=== PATIENT | male | born 1940 | race Caucasian/White ===

== ENCOUNTER 2017-08-22 00:26 | Emergency (ER) | payer OTHER, MEDICAID ==
[~2017-08-22] VITALS: Ht 170.2 cm; Wt 95.3 kg
--- NOTE | 2017-08-22 00:36 | NUR ---
BIBRA 89 FROM HOME C/O "SOB X SEVERAL DAYS". PT IS AAOX4. PT ABLE TOSPEAK FULL SENTENCES. SPO2 96% ON RA. PT PLACED ON NC 2L/M, SPO2 98% - DYSPNEA, COUGH, CONGESTION. PT DENIES ANY PAIN. SKIN WNL. RESP EVEN AND UNLABORED. NO S/S OF ACUTE DISTRESS NOTED. VSS. PT PLACED ON CARDIACF MONITOR AND POX. PT SAFETY AND COMOFORT MEASURES IN PLACE. AWAITING MD FOR EVAL.
[2017-08-22 01:26] LABS: BASOPHILS % (AUTO) 0.5 % (0.0-2.0); EOSINOPHILS % (AUTO) 10.3 % (0.0-6.0); HEMATOCRIT 35 % (39-51); HEMOGLOBIN 12.1 g/dL (13.5-17.5); LYMPHOCYTES # (AUTO) 1.8 /CMM (0.8-4.8); LYMPHOCYTES % (AUTO) 19.8 % (20.0-44.0); MEAN CORPUSCULAR HGB CONC 35 g/dl (31.0-36.0); MEAN CORPUSCULAR VOLUME 86 fL (80-96); MONOCYTES # (AUTO) 0.5 /CMM (0.1-1.30); MONOCYTES % (AUTO) 6.1 % (2.0-12.0); NEUTROPHILS # (AUTO) 5.7 /CMM (1.8-8.9); NEUTROPHILS % (AUTO) 63.3 % (43.0-81.0); PLATELET COUNT (AUTO) 164 /CMM (150-450); RDW COEFFICIENT OF VARIATION 12.8 (11.5-15.0); RED BLOOD CELL COUNT(AUTO) 4.05 MIL/uL (4.5-6.0); WHITE BLOOD COUNT (AUTO) 8.9 K/uL (4.3-11.0)
[2017-08-22 01:38] LABS: CALCIUM, SERUM 9.6 mg/dL (8.5-10.1); CARBON DIOXIDE 25 mmol/L (21-32); CHLORIDE 101 mmol/L (98-107); CREATININE 1.6 mg/dL (0.6-1.3); GLUCOSE 97 mg/dL (74-106); POTASSIUM 4.1 mmol/L (3.5-5.1); SODIUM SERUM 134 mmol/L (136-145); UREA NITROGEN, BLOOD 30 mg/dL (7-18)
[2017-08-22 01:45] LABS: TROPONIN I < 0.017 ng/mL (0.00-0.056)
[2017-08-22 01:50] LABS: ALANINE AMINOTRANSFERASE 39 U/L (12-78); ALBUMIN 3.6 g/dL (3.4-5.0); ALKALINE PHOSPHATASE 89 U/L (46-116); ASPARTATE AMINOTRANSFERASE 21 U/L (15-37); B-TYPE NATRIURETIC PEPTIDE 3063 PG/ML (0-125); BILIRUBIN,DIRECT 0.1 mg/dL (0.0-0.2); BILIRUBIN,TOTAL 0.5 mg/dL (0.2-1.0)
[2017-08-22] MEDS ORDERED: FUROSEMIDE 40 MG/4 ML VIAL ONE (02:06)
[2017-08-22 02:12] LABS: INR 1.01 (0.87-1.13)
[2017-08-22 02:16] VITALS: BP 119/68
--- NOTE | 2017-08-22 02:16 | NUR ---
Patient discharged to home in stable condition. Written and verbal after care instructions given. Patient verbalizes understanding of instruction.IV removed. Catheter intact and site benign. Pressure and 4x4 applied to site. No bleeding noted. VSS UPON DISCHARGE.
[2017-08-22] MEDS ORDERED: FUROSEMIDE 40 MG/4 ML VIAL IV ONE (02:30)
== END 2017-08-22 02:17 | disposition home or self-care (01) ==
LOC: ER 00:28
DX: I11.0 Hypertensive heart disease with heart failure (principal); I50.9 Heart failure, unspecified; E11.9 Type 2 diabetes mellitus without complications; I48.0 Paroxysmal atrial fibrillation; Z60.2 Problems related to living alone
CPT/HCPCS: 36415; 71045; 80048; 80076; 83880; 84484; 85025; 85730; 93005; 99285; A4606; J1940; Z7610

== ENCOUNTER 2020-05-07 03:30 | Inpatient (IN) | payer MEDICARE, OTHER ==
[~2020-05-07] VITALS: Ht 175.3 cm; Wt 77.1 kg
--- NOTE | 2020-05-07 03:45 | NUR ---
CAROLYN Morocho FROM [facility] FOR C/O ABD PAIN, N/V/D X 10 DAYS. PT DENIED H/A, COUGH, FEVER OR ANY RESPIRATORY PROBLEMS. PT WAS ASSISTED TO BED 16 AND WAS PLACED ON A MONITOR . VSS. WILL CONT TO MONITOR ,
[2020-05-07] MEDS ORDERED: ONDANSETRON HCL/PF 4 MG/2 ML VIAL ONE (03:51)
[2020-05-07] MEDS ORDERED: ONDANSETRON HCL/PF 4 MG/2 ML VIAL IVP ONE (04:00)
[2020-05-07] MEDS ORDERED: IV NS 0.9% 1,000 ML BAG IV ONE (04:00)
--- NOTE | 2020-05-07 04:16 | NUR ---
PT NOTED TO BE COUGHING. REMAINS ON MONITOR AND PULSE OX.
[2020-05-07 04:27] LABS: BASOPHILS % (AUTO) 0.4 % (0.0-2.0); EOSINOPHILS % (AUTO) 0.9 % (0.0-6.0); LYMPHOCYTES # (AUTO) 0.6 /CMM (0.8-4.8); MEAN CORPUSCULAR HGB CONC 32 g/dl (31.0-36.0); MEAN CORPUSCULAR VOLUME 68 fL (80-96); MONOCYTES # (AUTO) 0.7 /CMM (0.1-1.30); MONOCYTES % (AUTO) 7.6 % (2.0-12.0); NEUTROPHILS # (AUTO) 8.2 /CMM (1.8-8.9); NEUTROPHILS % (AUTO) 85.1 % (43.0-81.0); PLATELET COUNT (AUTO) 342 /CMM (150-450); WHITE BLOOD COUNT (AUTO) 9.6 K/uL (4.3-11.0)
[2020-05-07 04:57] LABS: ALANINE AMINOTRANSFERASE 30 U/L (12-78); ALBUMIN 3.4 g/dL (3.4-5.0); ALKALINE PHOSPHATASE 86 U/L (46-116); ASPARTATE AMINOTRANSFERASE 21 U/L (15-37); BILIRUBIN,DIRECT 0.3 mg/dL (0.0-0.2); BILIRUBIN,TOTAL 0.7 mg/dL (0.2-1.0); CALCIUM, SERUM 8.3 mg/dL (8.5-10.1); CARBON DIOXIDE 21 mmol/L (21-32); CHLORIDE 86 mmol/L (98-107); CREATININE 1.4 mg/dL (0.6-1.3); GLUCOSE 114 mg/dL (74-106); LIPASE 37 U/L (73-393); POTASSIUM 4.3 mmol/L (3.5-5.1); TOTAL PROTEIN, SERUM 6.5 g/dL (6.4-8.2); UREA NITROGEN, BLOOD 34 mg/dL (7-18)
[2020-05-07 04:59] LABS: SODIUM SERUM 120 mmol/L (136-145)
--- NOTE | 2020-05-07 05:00 | NUR ---
PER CODING QUALITY ANALYST, HGB AND SODIUM LEVEL LOW, WILL REDRAW PT. AWARE.
[2020-05-07 05:17] LABS: RED BLOOD CELL COUNT(AUTO) 1.92 MIL/uL (4.5-6.0)
[2020-05-07 05:18] LABS: HEMATOCRIT 13 % (39-51); HEMOGLOBIN 4.2 g/dL (13.5-17.5)
[2020-05-07] MEDS ORDERED: CEFEPIME 1 GM VIAL ONE (05:25)
[2020-05-07] MEDS ORDERED: methylPREDNISolone SOD SUCC 125 MG/2ML VIAL ONE (05:25)
[2020-05-07] MEDS ORDERED: methylPREDNISolone SOD SUCC 125 MG/2ML VIAL IV ONE (05:30)
[2020-05-07] MEDS ORDERED: CEFEPIME 1 GM in IV D5W 50 ML IV ONE (05:30)
[2020-05-07] MEDS ORDERED: AZITHROMYCIN 500 MG in IV D5W 250 ML IV ONE (05:30)
[2020-05-07 05:38] LABS: BASOPHILS % (AUTO) 0.3 % (0.0-2.0); LYMPHOCYTES # (AUTO) 0.5 /CMM (0.8-4.8); LYMPHOCYTES % (AUTO) 5.5 % (20.0-44.0); MEAN CORPUSCULAR HGB CONC 32 g/dl (31.0-36.0); MEAN CORPUSCULAR VOLUME 70 fL (80-96); MONOCYTES # (AUTO) 0.8 /CMM (0.1-1.30); MONOCYTES % (AUTO) 9.2 % (2.0-12.0); NEUTROPHILS # (AUTO) 7.4 /CMM (1.8-8.9); PLATELET COUNT (AUTO) 308 /CMM (150-450); WHITE BLOOD COUNT (AUTO) 8.8 K/uL (4.3-11.0)
--- NOTE | 2020-05-07 05:42 | NUR ---
DR. MADISON (RANGE MANAGER GI) PAGED PER DR. WAGGONER'S REQUEST
[2020-05-07] MEDS ORDERED: ASPI-1420 PO (06:05)
[2020-05-07] MEDS ORDERED: FLUD0.1T PO (06:05)
[2020-05-07] MEDS ORDERED: DIGO125T PO (06:05)
[2020-05-07] MEDS ORDERED: MELA5TAB PO (06:05)
[2020-05-07] MEDS ORDERED: PANT40TA49 PO (06:05)
[2020-05-07] MEDS ORDERED: APIX5TAB PO (06:05)
[2020-05-07] MEDS ORDERED: FURO-145 PO (06:05)
[2020-05-07] MEDS ORDERED: CRAN450C PO (06:05)
[2020-05-07] MEDS ORDERED: AMIO200T5 PO (06:05)
[2020-05-07] MEDS ORDERED: DILT180C66 PO (06:05)
[2020-05-07] MEDS ORDERED: LORA-588 PO (06:05)
[2020-05-07] MEDS ORDERED: OMEG1CAP55 PO (06:05)
[2020-05-07] MEDS ORDERED: ATOR20TA PO (06:05)
[2020-05-07] MEDS ORDERED: [UNRECOGNIZED DRUG - CODE] PO (06:05)
[2020-05-07] MEDS ORDERED: HYDR-4076 PO (06:05)
[2020-05-07] MEDS ORDERED: FINA5TAB3 PO (06:05)
[2020-05-07] MEDS ORDERED: TAMS-12 PO (06:05)
--- NOTE | 2020-05-07 06:10 | NUR ---
DR. WAGGONER SPEAKING WITH DR. SUZAN DAILEY REGARDING ADMISSION
[2020-05-07 06:19] LABS: RED BLOOD CELL COUNT(AUTO) 1.83 MIL/uL (4.5-6.0)
[2020-05-07 06:21] LABS: HEMATOCRIT 13 % (39-51)
[2020-05-07 06:42] LABS: OCCULT BLOOD STOOL POSITIVE (NEGATIVE)
[2020-05-07] MEDS ORDERED: ACETAMINOPHEN 650 MG/SUPP.RECT RC PRN (07:00)
[2020-05-07] MEDS ORDERED: ONDANSETRON HCL/PF 4 MG/2 ML VIAL IVP PRN (07:00)
--- NOTE | 2020-05-07 07:22 | NUR ---
REPORT GIVEN TO DIONY SHELBY FOR CHETAN
[2020-05-07] MEDS ORDERED: PROTHROMBIN COMPLEX CONCENTR 500 UNIT VIAL IV ONE (07:30)
[2020-05-07] MEDS: PROTHROMBIN COMPLEX CONCENTR 500 UNIT VIAL IV ONE (07:35)
[2020-05-07 07:45] LABS: BILIRUBIN,URINE NEGATIVE (NEGATIVE); COLOR,URINE YELLOW (YELLOW); LEUKOCYTE ESTERASE ,URINE NEGATIVE (NEGATIVE); NITRITE, URINE NEGATIVE (NEGATIVE); PROTEIN,URINE NEGATIVE (NEGATIVE); UGLUCOSE NEGATIVE (NEGATIVE); UROBILINOGEN,URINE 0.2 EU/dL (0.2)
[2020-05-07 08:17] LABS: IRON, SERUM 6 ug/dl (50-175); TOTAL IRON BINDING CAPACITY 437 ug/dl (250-450)
--- NOTE | 2020-05-07 10:10 | NUR ---
1ST UNIT OF PRBC INFUSION STARTED. WILL MONITOR FOR ADVERSE REACTION.
[2020-05-07] MEDS ORDERED: PANTOPRAZOLE 40 MG VIAL ONE ×2 (10:13→19:50)
[2020-05-07] MEDS: PANTOPRAZOLE 40 MG VIAL IV SCH ×2 (10:15→19:51)
[2020-05-07 11:18] LABS: LYMPHOCYTES % (MANUAL) 3 % (16-48); MONOCYTES % (MANUAL) 3 % (0-11.0); NEUTROPHILS % (MANUAL) 94 (42-76)
--- NOTE | 2020-05-07 12:46 | NUR ---
JASON LINN TO [facility] ETA [phone]
--- NOTE | 2020-05-07 13:24 | NUR ---
VERIFIED 2ND UNIT OF BLOOD WITH BATSHEVA KEENE RN.
--- NOTE | 2020-05-07 16:28 | NUR ---
2ND UNIT OF PRBC COMPLETED AT 1615, PATIENT HAD NO ADVERSE REACTION. NEEDS ATTENDED. VITALS STABLE.
--- NOTE | 2020-05-07 16:29 | NUR ---
RENA WOLFE AT BEDSIDE FOR EVAL.
[2020-05-07 17:52] LABS: HEMOGLOBIN 6.4 g/dL (13.5-17.5)
--- NOTE | 2020-05-07 18:14 | NUR ---
RECEIVED ORDER FROM RENA WOLFE, TO KEEP PATIENT STRICTLY NPO EXCEPT FOR BOWEL PREP FOR TOMORROW'S PROCEDURE AT NOON (EGD AND COLONOSCOPY) W/ DR. BURROWS. SHE ALSO ORDERED 1 UNIT PRBC.
[2020-05-07] MEDS ORDERED: PEG 3350/NA SULF,BICARB,CL/KCL 4,000 ML BOTTLE PO ONE (18:30)
[2020-05-07] MEDS ORDERED: CEFTRIAXONE 1GM BAG (ER ONLY) 50 ML IV ONE (18:36)
--- NOTE | 2020-05-07 18:47 | NUR ---
PT ASSIGNED TO ROOM 107
--- NOTE | 2020-05-07 18:52 | NUR ---
TRIED TO GIVE REPORT, HOSPITAL TRAY SERVICE WORKER NURSE NOT AVAILABLE YET.
[2020-05-07] MEDS: CEFTRIAXONE 1 G in IV D5W 50 ML IV SCH (18:53)
[2020-05-07] MEDS: SOD FERRIC GLUC 125 MG in IV NS 0.9% 100 ML IV SCH (19:15)
--- NOTE | 2020-05-07 19:45 | NUR ---
REPORT GIVEN TO PATRICK SHELBY FOR CHETAN
[2020-05-07 20:00] VITALS: BP 131/58
--- NOTE | 2020-05-07 20:07 | NUR ---
PT TRANSFERED PER ACLS PROTOCOL
[2020-05-07 23:24] VITALS: BP 141/75
--- NOTE | 2020-05-07 23:26 | NUR ---
SRIDEVI/RN PRBC UNIT #3 STARTED. WILL MONITOR PER PROTOCOL.
--- NOTE | 2020-05-07 23:34 | NUR ---
SRIDEVI/RN CALLED KAELYN SANTIAGO [facility], TO OBTAIN EMERGENCY MASTER BLACK BELT FOR PROCEDURE CONSENT AND TO OBTAIN PERTINENT ADMISSION INFORMATIONS, SPOKE TO MARS, CAREGIVER, UNABLE TO OBTAIN INFORMATIONS FROM MARS PER MARS, SHE IS A CAREGIVER ONLY.
[2020-05-07 23:40] VITALS: BP 138/74
[2020-05-08] VITALS (11 sets, daily range): BP systolic 109–145; BP diastolic 50–80
--- NOTE | 2020-05-08 00:28 | NUR ---
[facility]RIEDVI[facility] PATIENT WAS AWAKE, ALERT, ORIENTED, COMFORTABLE, NO C/O PAIN, NO DISTRESS NOTED, ADMISSION DONE PER PROTOCOL, KRISH BOWEL PREP FOR COLONOSCOPY IN A.M. WAS STARTED, TEACHINGS FOR COLONOSCOPY WAS DONE, PATIENT VERBALIZED UNDERSTANDING AND AGREEMENT, PRBC TRANSFUSION WAS STARTED, TAUGHT THE USE OF CALL LIGHT AND PLACED IT AT BEDSIDE WITHIN REACH, FALL PRECAUTIONS PER PROTOCOL IMPLEMENTED, WILL MONITOR.
[2020-05-08] MEDS: IV D5/ 0.9% NACL 1,000 ML IV PRN (02:22)
--- NOTE | 2020-05-08 02:37 | NUR ---
SRIDEVI/RN BLOOD TRANSFUSION FINISHED, VITAL SIGNS STABLE, AFEBRILE, NO REACTIONS NOTED, WILL CONTINUE TO MONITOR.
--- NOTE | 2020-05-08 05:49 | NUR ---
SRIDEVI/RN PATIENT IS AWAKE, ALERT, ORIENTED, STILL TAKING THE GOLYTELY, STOOL NOT CLEAR YET, PATIENT IS COMFORTABLE, NO DISTRESS NOTED, ALL NEEDS ATTENDED AT THIS TIME, WILL CONTINUE TO MONITOR.
[2020-05-08] MEDS ORDERED: SORBITOL SOLUTION 30 ML PO SCH (06:00)
[2020-05-08] MEDS: PANTOPRAZOLE 40 MG VIAL IV SCH ×2 (06:37→18:10)
--- NOTE | 2020-05-08 07:36 | NUR ---
ORANGE PICKER MACHINE OPERATOR NOTES PATIENT RECEIVED IN BED, ALERT AND ORIENTED X 3-4. ON VIDEO CONTROL OPERATOR. ON NASAL CANNULA, 4.0 LITERS WITH NO RESPIRATORY DISTRESS NOTED WITH EVEN NON-LABORED BREATHING. IV ACCESS INTACT AND PATENT. SKIN WARM AND DRY TO TOUCH. PATIENT PRESENTS AND DENIES PAIN AND DISCOMFORT. SAFETY PRECAUTIONS IMPLEMENTED WITH BED LOCKED, BED ALARM ON, BILATERAL SIDE RAILS UP, AND CALL LIGHT WITHIN EASY REACH. WILL CONTINUE TO MONITOR PATIENT.
[2020-05-08 07:37] LABS: HEMATOCRIT 23 % (39-51); HEMOGLOBIN 7.2 g/dL (13.5-17.5); LYMPHOCYTES # (AUTO) 0.5 /CMM (0.8-4.8); LYMPHOCYTES % (AUTO) 3.4 % (20.0-44.0); MEAN CORPUSCULAR HGB CONC 31 g/dl (31.0-36.0); MEAN CORPUSCULAR VOLUME 77 fL (80-96); MONOCYTES # (AUTO) 1.4 /CMM (0.1-1.30); MONOCYTES % (AUTO) 8.6 % (2.0-12.0); NEUTROPHILS # (AUTO) 14.1 /CMM (1.8-8.9); PLATELET COUNT (AUTO) 381 /CMM (150-450); RED BLOOD CELL COUNT(AUTO) 2.99 MIL/uL (4.5-6.0)
--- NOTE | 2020-05-08 07:40 | NUR ---
SRIDEVI/RN RECEIVED A CALL FROM GENNARO MCCLOUD, INFORMED ME THAT THE RESPONSIBLE PERSON OF THE PATIENT IS DEON SANTIAGO, TEL # [phone]. ENDORSED TO NEXT RN.
--- NOTE | 2020-05-08 07:49 | NUR ---
left message to DEON [phone] for consent colonoscopy and EGD waiting for returning call back
--- NOTE | 2020-05-08 09:30 | NUR ---
SRIDEVI RN NOTES CONSENT OBTAINED FROM PONCE CHAVARRIA, CHARGE NURSE WITNESS AND CONSENT GIVEN. WILL CONTINUE TO MONITOR PATIENT.
[2020-05-08 10:25] LABS: CALCIUM, SERUM 8.5 mg/dL (8.5-10.1); MAGNESIUM 2.3 mg/dL (1.8-2.4); PHOSPHORUS 3.8 mg/dL (2.5-4.9); POTASSIUM 4.3 mmol/L (3.5-5.1)
[2020-05-08 10:44] LABS: THYROID STIMULATING HORMONE 0.766 uIU/mL (0.358-3.74); URIC ACID 4.3 mg/dL (2.6-7.2)
[2020-05-08] MEDS ORDERED: ETOMIDATE 2 MG/ML VIAL ONE (13:42)
--- NOTE | 2020-05-08 14:32 | NUR ---
REJECT OPENER NOTES PATIENT RETURNED FROM OR POST EGD AND COLONOSCOPY. WILL CONTINUE TO MONITOR PATIENT.
[2020-05-08] MEDS: SOD FERRIC GLUC 125 MG in IV NS 0.9% 100 ML IV SCH (15:51)
[2020-05-08 17:37] LABS: CREATININE 1.3 mg/dL (0.6-1.3)
[2020-05-08] MEDS: CEFTRIAXONE 1 G in IV D5W 50 ML IV SCH (17:48)
--- NOTE | 2020-05-08 18:45 | NUR ---
HEAD OPERATOR SULFIDE NOTES PATIENT IN BED, ALERT AND ORIENTED X 3-4. ON ORCHID TRANSPLANTER. ON NASAL CANNULA, 4.0 LITERS WITH NO RESPIRATORY DISTRESS NOTED WITH EVEN NON-LABORED BREATHING. IV ACCESS INTACT AND PATENT. SKIN KEPT CLEAN, WARM AND DRY TO TOUCH. PATIENT PRESENTS AND DENIES PAIN AND DISCOMFORT. MET ALL OF PATIENT'S NEEDS. SAFETY PRECAUTIONS IMPLEMENTED WITH BED LOCKED, BED ALARM ON, BILATERAL SIDE RAILS UP, AND CALL LIGHT WITHIN EASY REACH. WILL ENDORSE PLAN OF CARE TO UPCOMING RN.
--- NOTE | 2020-05-08 20:00 | NUR ---
followed up with lab regarding h and h not done. only one airport maintenance laborer on duty and she was unable to draw the blood . updated [facility] regarding delay new order for midline recieved.
--- NOTE | 2020-05-08 21:02 | NUR ---
assisted lab for successful blood draw of patient for h and h.
[2020-05-08 21:08] LABS: HEMOGLOBIN 7.2 g/dL (13.5-17.5)
--- NOTE | 2020-05-08 22:07 | NUR ---
jo dotson/ picc line nurse at the bedside to perform midline insertion Addendum: 05/08/20 at 2221 by KARLO SKY RN left upper arm 18 gauge midline inserted to left arm per jo dotson
[2020-05-09] VITALS (9 sets, daily range): BP systolic 108–148; BP diastolic 54–80
--- NOTE | 2020-05-09 07:30 | NUR ---
DOUBLE END SEWER OPENING NOTES Patient is alert and oriented x 3. Patient was in good stable condition upon endorsment from night shift manager. Patient is on N/C with 02 at 4 liters with no s/s of respiratory distress. IV access midline to left AC intact and free of any s/s of infection or bleeding. No c/o pain or discomfort. Bed is in lowest and locked position. Bed is in lowest and locked position. Will continue to monitor. Call light with in reach.
[2020-05-09 07:31] LABS: CALCIUM, SERUM 8.1 mg/dL (8.5-10.1); CREATININE 1.1 mg/dL (0.6-1.3); MAGNESIUM 2.5 mg/dL (1.8-2.4); PHOSPHORUS 3.3 mg/dL (2.5-4.9); POTASSIUM 3.4 mmol/L (3.5-5.1)
[2020-05-09 07:49] LABS: BASOPHILS % (AUTO) 0.1 % (0.0-2.0); EOSINOPHILS % (AUTO) 0.7 % (0.0-6.0); HEMATOCRIT 21 % (39-51); LYMPHOCYTES # (AUTO) 0.7 /CMM (0.8-4.8); LYMPHOCYTES % (AUTO) 4.9 % (20.0-44.0); MEAN CORPUSCULAR HGB CONC 31 g/dl (31.0-36.0); MEAN CORPUSCULAR VOLUME 77 fL (80-96); MONOCYTES # (AUTO) 1.2 /CMM (0.1-1.30); MONOCYTES % (AUTO) 8.4 % (2.0-12.0); NEUTROPHILS % (AUTO) 85.9 % (43.0-81.0); PLATELET COUNT (AUTO) 337 /CMM (150-450); RED BLOOD CELL COUNT(AUTO) 2.67 MIL/uL (4.5-6.0)
[2020-05-09 07:57] LABS: HEMOGLOBIN 6.4 g/dL (13.5-17.5)
--- NOTE | 2020-05-09 08:46 | NUR ---
hgb 6.4 hct 21 LABEL MACHINE OPERATOR was notified and 1 units of PRBC to be given today when available
[2020-05-09] MEDS: PANTOPRAZOLE 40 MG VIAL IV SCH ×2 (09:33→21:51)
[2020-05-09] MEDS ORDERED: POTASSIUM CL. PREMIX PERIPHER. 50 ML IV SCH (11:30)
[2020-05-09] MEDS ORDERED: POTASSIUM CHLORIDE 20 MEQ TAB.PRT.SR PO ONE (12:30)
--- NOTE | 2020-05-09 13:00 | NUR ---
ELECTRICAL INSPECTOR NOTES Patient was given his blood transfusion. Patients vitals monitored closely per protocol and did not have any s/s of reaction. No c/o sob. No c/o fever or chills. Patient tolerated well
[2020-05-09] MEDS: SOD FERRIC GLUC 125 MG in IV NS 0.9% 100 ML IV SCH (15:02)
[2020-05-09] MEDS: IV D5/ 0.9% NACL 1,000 ML IV PRN (15:12)
[2020-05-09] MEDS: ZITHROMAX 500 MG/250 ML D5W IV SCH ×2 (17:59)
[2020-05-09] MEDS: FOLIC ACID 1 MG TABLET PO SCH (18:09)
--- NOTE | 2020-05-09 18:16 | NUR ---
PER RN, PT BEING TRANSFERED IN THE EVENING, TO DO TOMORROW IN THE AM.
--- NOTE | 2020-05-09 19:40 | NUR ---
MAGAZINE REPAIRER CLOSING NOTES Patient is alert and oriented x 3. Patient is on N/C with 02 at 4 litesr with no s/s of respiratory distress. IV midline to left AC intact and free of any s/s of infection or bleeding. No c/o pain or discomfort. Patient educated to use call light for assistance. Bed is in lowest and locked position. Patient was given his 1 unit of blood transfusion and did not have any s/sx of allergic reaction. No c/o itching or sob. Vitals WNL. Bed is in lowest and locked position. Endorsed to next shift for CHETAN.
--- NOTE | 2020-05-09 20:00 | NUR ---
AFSANEH NOTES PT TRANSFERRED TO [facility] VIA BED. PT ORIENTED TO ROOM AND UNIT. CALL LIGHT WITHIN REACH BED LOCKED IN PLACE. WILL CONTINUE TO MONITOR. Addendum: 05/10/20 at 0320 by KARLO SKY RN REPORT GIVEN TO ISABELLE AT 2105 PATIENT TRANSFERRED AT 2120 TO [facility] BED 1
--- NOTE | 2020-05-09 20:05 | NUR ---
DR. HILARIO CALLED. UPDATED ON PATIENT CONDITION. DR. HILARIO TO WRITE NEW ORDERS FOR LABS IN AM AND POSSIBLE CT SCAN.
--- NOTE | 2020-05-09 21:42 | NUR ---
SPOKE WITH RN, PREP GIVEN FOR CT AP WITH IV AND ORAL CONTRAST. NPO STARTS AT 2AM AND DRINKING ORAL CONTRAST AT 6AM. WILL PERFORM CT IV CONTRAST IN CT DEPARTMENT AT 7AM. RN WILL OBTAIN CONTRAST INJECTION CONSENT AND IV LINE.
[2020-05-09] MEDS: CEFTRIAXONE 1 G in IV D5W 50 ML IV SCH (22:05)
[2020-05-10] VITALS: BP 129/54
[2020-05-10 00:06] LABS: HEMOGLOBIN 7.7 g/dL (13.5-17.5)
[2020-05-10 04:00] VITALS: BP 131/84
[2020-05-10 06:46] LABS: BASOPHILS % (AUTO) 0.3 % (0.0-2.0); EOSINOPHILS % (AUTO) 3.8 % (0.0-6.0); HEMATOCRIT 28 % (39-51); HEMOGLOBIN 8.3 g/dL (13.5-17.5); LYMPHOCYTES # (AUTO) 0.6 /CMM (0.8-4.8); LYMPHOCYTES % (AUTO) 4.9 % (20.0-44.0); MEAN CORPUSCULAR HGB CONC 29 g/dl (31.0-36.0); MEAN CORPUSCULAR VOLUME 85 fL (80-96); MONOCYTES # (AUTO) 0.9 /CMM (0.1-1.30); NEUTROPHILS # (AUTO) 9.7 /CMM (1.8-8.9); PLATELET COUNT (AUTO) 279 /CMM (150-450); RED BLOOD CELL COUNT(AUTO) 3.32 MIL/uL (4.5-6.0); WHITE BLOOD COUNT (AUTO) 11.7 K/uL (4.3-11.0)
[2020-05-10] MEDS ORDERED: DIATR MEGLU/DIATRIZOATE SODIUM 30 ML BOTTLE (GASTROGRAPHIN) ONE (06:48)
[2020-05-10] MEDS ORDERED: DIATR MEGLU/DIATRIZOATE SODIUM 120 ML BOTTLE (GASTROGRAPHIN) ONE (06:48)
[2020-05-10 07:26] LABS: CALCIUM, SERUM 8.5 mg/dL (8.5-10.1); CREATININE 0.9 mg/dL (0.6-1.3); MAGNESIUM 2.4 mg/dL (1.8-2.4); PHOSPHORUS 3.1 mg/dL (2.5-4.9); POTASSIUM 3.4 mmol/L (3.5-5.1)
--- NOTE | 2020-05-10 07:46 | NUR ---
RN NOTES Patient is alert and oriented x 3. Patient was in good stable condition. Patient is on N/C with 02 at 4 liters with no s/s of respiratory distress. IV access midline to left AC intact and free of any s/s of infection or bleeding. No c/o pain or discomfort. Bed is in lowest and locked position. Bed is in lowest and locked position. Will continue to monitor. Call light with in reach. CT OF THE ABDOMEN WILL BE DONE THIS MORNING WILL ENDORSE CARE TO DAY SHIFT.
--- NOTE | 2020-05-10 07:53 | NUR ---
PACKING SHED SUPERVISOR OPENING NOTES PT RECEIVED AWAKE IN BED IN NO ACUTE SIGNS OF DISTRESS. A/O X3. ABLE TO MAKE NEEDS KNOWN, DENIES PAIN OR ANY DISCOMFORTS AT THIS TIME. ON 02 VIA N/C AT 2LPM, TOLERATING WELL, BREATHING EVEN AND UNLABORED. EXTERNAL CALL CENTER DISPATCHER CURRENTLY SHOWS AFIB WITH HR OF 95, NO C/O CARDIAC DISTRESS VOICED AT THIS TIME. KARI MIDLINE INTACT AND PATENT, IVF RUNNING ORDERED. SAFETY MEASURES IN PLACE: BED IN LOWEST LOCKED POSITION WITH SR UP X2. CALL LIGHT W/IN REACH. WILL CONTINUE TO MONITOR PT ACCORDINGLY.
[2020-05-10] MEDS ORDERED: IOHEXOL-300 100 ML VIAL IV ONE (07:59)
[2020-05-10] MEDS ORDERED: IV NS 0.9% 250 ML IV ONE (07:59)
[2020-05-10 08:36] VITALS: BP 128/71
[2020-05-10] MEDS: POTASSIUM CHLORIDE 20 MEQ TAB.PRT.SR PO SCH ×2 (09:38→10:51)
[2020-05-10] MEDS: FOLIC ACID 1 MG TABLET PO SCH (09:38)
[2020-05-10] MEDS: PANTOPRAZOLE 40 MG VIAL IV SCH ×2 (09:39→20:09)
[2020-05-10 12:20] VITALS: BP 102/46
[2020-05-10] MEDS: SOD FERRIC GLUC 125 MG in IV NS 0.9% 100 ML IV SCH (14:36)
[2020-05-10 15:59] VITALS: BP 128/88
[2020-05-10] MEDS: ZITHROMAX 500 MG/250 ML D5W IV SCH ×2 (16:09)
--- NOTE | 2020-05-10 18:36 | NUR ---
MS RN CLOSING NOTES PT IN BED AWAKE AND RESTING AT MODERATE HIGH BACKREST POSITION AT THIS TIME. A/O X3. ABLE TO MAKE NEEDS KNOWN. ON 02 VIA N/C AT 1LPM, TOLERATING WELL, BREATHING EVEN AND UNLABORED. KARI MIDLINE INTACT AND PATENT, IVF RUNNING ORDERED. ALL NEEDS AND CARE ATTENDED WELL. SAFETY MEASURES IN PLACE: BED IN LOWEST LOCKED POSITION WITH SR UP X2. CALL LIGHT W/IN REACH. WILL ENDORSE CHETAN TO NIGHT NURSE.
[2020-05-10] MEDS: MORPHINE SULFATE INJ 2 MG/ML DISP.SYRIN IV PRN (19:04)
--- NOTE | 2020-05-10 19:46 | NUR ---
MS RN OPENING NOTE Patient awake in bed, A/O x3. HOB elevated. Breathing even, clear, unlabored on 1 LPM NC. PERRLA. Sensations intact. No numbness or tingling. No JVD. Skin is warm, pink, dry, intact with moderate purple discoloration on bilateral upper extremities. Abdomen large, round soft, non-tender. Patient denies nausea or vomiting. BS active. Patient is incontinent. Urine output clear and yellow. IV site KARI midline running D5NS @ 50 ml/hr. No signs of redness or infiltration. Bed in low position, wheels locked, side rails up x2, call light within reach.
[2020-05-10 20:00] VITALS: BP 135/69
[2020-05-10] MEDS: CEFTRIAXONE 1 G in IV D5W 50 ML IV SCH (20:08)
[2020-05-11 06:28] LABS: BASOPHILS # (AUTO) 0.2 /CMM (0.0-0.2); BASOPHILS % (AUTO) 1.6 % (0.0-2.0); EOSINOPHILS % (AUTO) 4.8 % (0.0-6.0); HEMATOCRIT 28 % (39-51); HEMOGLOBIN 8.7 g/dL (13.5-17.5); LYMPHOCYTES # (AUTO) 0.6 /CMM (0.8-4.8); LYMPHOCYTES % (AUTO) 4.5 % (20.0-44.0); MEAN CORPUSCULAR HGB CONC 31 g/dl (31.0-36.0); MEAN CORPUSCULAR VOLUME 79 fL (80-96); MONOCYTES # (AUTO) 0.8 /CMM (0.1-1.30); MONOCYTES % (AUTO) 6.5 % (2.0-12.0); NEUTROPHILS # (AUTO) 10.4 /CMM (1.8-8.9); NEUTROPHILS % (AUTO) 82.6 % (43.0-81.0); PLATELET COUNT (AUTO) 289 /CMM (150-450); RED BLOOD CELL COUNT(AUTO) 3.48 MIL/uL (4.5-6.0); WHITE BLOOD COUNT (AUTO) 12.5 K/uL (4.3-11.0)
[2020-05-11 07:21] LABS: CALCIUM, SERUM 8.5 mg/dL (8.5-10.1); CREATININE 0.9 mg/dL (0.6-1.3); MAGNESIUM 3.5 mg/dL (1.8-2.4); PHOSPHORUS 3.3 mg/dL (2.5-4.9); POTASSIUM 3.7 mmol/L (3.5-5.1); PROSTATE SPECIFIC ANTIGEN SCR 13.05 ng/mL (0.00-4.00)
--- NOTE | 2020-05-11 07:28 | NUR ---
MS RN OPENING NOTES RECEIVED PT AWAKE AND SITTING IN BED. A/O X3. ABLE TO MAKE NEEDS KNOWN, DENIES PAIN OR ANY DISCOMFORTS AT THIS TIME. ON ROOM AIR, TOLERATING WELL, RESPIRATION ARE EVEN AND UNLABORED. KARI MIDLINE INTACT, PATENT AND FLUSHES WELL. SAFETY MEASURES IN PLACE: BED IN LOWEST LOCKED POSITION WITH SR UP X2. CALL LIGHT W/IN REACH. WILL CONTINUE TO MONITOR PT ACCORDINGLY.
[2020-05-11 08:06] LABS: IMMUNOGLOBULIN A, SERUM 197 mg/dL (61-437); IMMUNOGLOBULIN G, SERUM 809 mg/dL (603-1613); IMMUNOGLOBULIN M, SERUM 22 mg/dL (15-143)
[2020-05-11 08:21] VITALS: BP 146/69
[2020-05-11] MEDS: FOLIC ACID 1 MG TABLET PO SCH (08:27)
[2020-05-11] MEDS: PANTOPRAZOLE 40 MG VIAL IV SCH ×2 (08:27→20:22)
[2020-05-11] MEDS: SOD FERRIC GLUC 125 MG in IV NS 0.9% 100 ML IV SCH (14:30)
[2020-05-11 16:15] VITALS: BP 136/85
[2020-05-11] MEDS: ZITHROMAX 500 MG/250 ML D5W IV SCH ×2 (16:33)
[2020-05-11] MEDS ORDERED: FERR325T23 PO (18:12)
--- NOTE | 2020-05-11 19:05 | NUR ---
MS RN CLOSING NOTES PT IN BED AWAKE AT THIS TIME. A/O X3. ABLE TO MAKE NEEDS KNOWN. ON ROOM AIR, TOLERATING WELL, BREATHING EVEN AND UNLABORED. KARI MIDLINE INTACT AND PATENT. ALL NEEDS AND CARE ATTENDED WELL. SAFETY MEASURES KEPT IN PLACE: BED IN LOWEST LOCKED POSITION WITH SR UP X2. CALL LIGHT W/IN REACH. WILL ENDORSE CHETAN TO NIGHT NURSE.
--- NOTE | 2020-05-11 19:30 | NUR ---
MS RN NOTE: PATIENT RESTING IN BED, NO ACUTE DISTRESS NOTED. BREATHING EVEN AND UNLABORED, NO SOB NOTED. MIDLINE TO LEFT UPPER ARM IN PLACE. PATIENT TO BE DISCHARGE BACK TO [facility] AND CARDIAC EXERCISE SPECIALIST TIME AT 2030. DISCHARGE PAPERWORK COMPLETED DURING DAYSHIFT. REPORT TO BE GIVEN TO FACILITY. BED LOCKED AND IN LOWEST POSITION, CALL LIGHT IN REACH. WILL CONTINUE TO MONITOR.
[2020-05-11] MEDS: CEFTRIAXONE 1 G in IV D5W 50 ML IV SCH (20:22)
[2020-05-11] MEDS: MORPHINE SULFATE INJ 2 MG/ML DISP.SYRIN IV PRN (20:23)
--- NOTE | 2020-05-11 20:30 | NUR ---
MS RN NOTE: PATIENT COMPLAIN OF BACK, SCROTUM PAIN 12/31, MORPHINE 2MG IV GIVEN MD ORDER. CALLED FACILITY AND REPORT GIVEN TO AURELIO. DISCHARGE PAPERWORK SIGNED AND FILED IN CHART. WAITING FOR AMBULANCE PICKER TENDER. WILL CONTINUE TO MONITOR.
--- NOTE | 2020-05-11 21:15 | NUR ---
RN NOTE: EMT ARRIVED TO MAXILLOFACIAL SURGEON PATIENT. REPORT AND DISCHARGE PAPERWORK GIVEN TO EMT. MIDLINE TO LEFT UPPER ARM REMOVED, COVERED WITH GAUZE, PRESSURE APPLIED AND SECURED WITH TAPE. ID BAND REMOVED. BELONGINGS CHECKED AND WITH EMT. PATIENT OFF FLOOR IN STABLE CONDITION. Addendum: 05/11/20 at 2157 by KOURTNEY BROWN RN FACILITY CALLED AND INFORMED THAT PATIENT IS ON THE WAY.
[2020-05-11 21:22] VITALS: BP 160/94
[2020-05-12 01:06] LABS: HAPTOGLOBIN 120 mg/dL (34-355)
[2020-05-12 09:08] LABS: *SPE A/G RATIO 1.3 (0.7-1.7); *SPE ALBUMIN 3.5 g/dL (2.9-4.4); *SPE ALPHA-1-GLOBULIN 0.3 g/dL (0.0-0.4); *SPE ALPHA-2-GLOBULIN 0.7 g/dL (0.4-1.0); *SPE GLOBULIN, TOTAL 2.7 g/dL (2.2-3.9); *SPE M-SPIKE Not Observed g/dL (Not Observed); *SPEGAMMA GLOBULIN 0.7 g/dL (0.4-1.8)
[2020-05-12] MEDS ORDERED: SOD FERRIC GLUC 125 MG in IV NS 0.9% 100 ML IV SCH (14:00)
== END 2020-05-11 21:00 | DRG 193 ==
LOC: ER 03:32 → TRANSITION 07:21 → TELE1 18:51 → TELE 05-09 21:18 → MED 05-10 12:42
PROVIDERS: ADMIT Registered Nurse; ATTEND Nurse Practitioner Acute Care
PROC: 30233N1 Transfusion of Nonautologous Red Blood Cells into Peripheral Vein, Percutaneous Approach (ICD-10-PCS; 2020-05-07)
PROC: 0DJD8ZZ Inspection of Lower Intestinal Tract, Via Natural or Artificial Opening Endoscopic (ICD-10-PCS; principal; 2020-05-08)
PROC: 0DJ08ZZ Inspection of Upper Intestinal Tract, Via Natural or Artificial Opening Endoscopic (ICD-10-PCS; 2020-05-08)
PROC: 05HC33Z Insertion of Infusion Device into Left Basilic Vein, Percutaneous Approach (ICD-10-PCS; 2020-05-08)
DX: J15.9 Unspecified bacterial pneumonia (principal); N17.0 Acute kidney failure with tubular necrosis; D68.59 Other primary thrombophilia; E22.2 Syndrome of inappropriate secretion of antidiuretic hormone; K29.70 Gastritis, unspecified, without bleeding; K57.30 Diverticulosis of large intestine without perforation or abscess without bleeding; Q27.33 Arteriovenous malformation of digestive system vessel; E86.0 Dehydration; K64.8 Other hemorrhoids; I11.0 Hypertensive heart disease with heart failure; I50.9 Heart failure, unspecified; E78.5 Hyperlipidemia, unspecified; I48.91 Unspecified atrial fibrillation; E11.9 Type 2 diabetes mellitus without complications; E66.01 Morbid (severe) obesity due to excess calories; Z68.35 Body mass index [BMI] 35.0-35.9, adult; Z79.82 Long term (current) use of aspirin; Z79.899 Other long term (current) drug therapy; Z79.01 Long term (current) use of anticoagulants; N40.0 Benign prostatic hyperplasia without lower urinary tract symptoms; D50.0 Iron deficiency anemia secondary to blood loss (chronic); E86.1 Hypovolemia; Y95 Nosocomial condition; D72.829 Elevated white blood cell count, unspecified; Z20.822 Contact with and (suspected) exposure to COVID-19; I70.0 Atherosclerosis of aorta; E87.6 Hypokalemia
CPT/HCPCS: 36415; 71045-TC; 74178; 80048-TC; 80076-TC; 82272-TC; 82728-TC; 82784; 83010; 83540-TC; 83605-TC; 83615-TC; 83690-TC; 83735-TC; 83880; 84100-TC; 84153-TC; 84154-TC; 84155; 84165; 84443-TC; 84484-TC; 84550-TC; 85025-TC; 85027-TC; 85045-TC; 86334; 86850-TC; 86880-TC; 87040-TC; 87081-TC; 93307-TC; C9113; C9132; C9803; G0378; J0456; J0692; J0696; J2270; J2405; J2704; J2916; J2930; J3490; J7030; J7042; J7050; J7060; P9016-BL; Q9963; Q9967; U0003

== ENCOUNTER 2020-12-02 00:37 | Emergency (ER) | payer MEDICARE, OTHER ==
[~2020-12-02] VITALS: Ht 175.3 cm; Wt 74.8 kg
[~2020-12-02 00:37] MED LIST: AMIO200T5 PO; APIX5TAB PO; ASPI-1420 PO; ATOR20TA PO; CRAN450C PO; DIGO125T PO; DILT180C66 PO; FERR325T23 PO; FINA5TAB3 PO; FLUD0.1T PO; FURO-145 PO; HYDR-4076 PO; LORA-672 PO; MELA5TAB PO; OMEG1CAP55 PO; PANT40TA49 PO; TAMS-12 PO; [UNRECOGNIZED DRUG - CODE] PO
[2020-12-02] MEDS ORDERED: IV NS 0.9% 500 ML BAG IV ONE (01:00)
[2020-12-02] MEDS ORDERED: ONDANSETRON HCL/PF 4 MG/2 ML VIAL IVP ONE (01:00)
[2020-12-02] MEDS ORDERED: ONDANSETRON HCL/PF 4 MG/2 ML VIAL ONE (01:01)
[2020-12-02 01:13] LABS: BASOPHILS # (AUTO) 0.1 K/uL (0.0-0.2); BASOPHILS % (AUTO) 1.5 % (0.0-2.0); EOSINOPHILS % (AUTO) 11.8 % (0.0-6.0); HEMATOCRIT 35 % (39-51); HEMOGLOBIN 11.6 g/dL (13.5-17.5); LYMPHOCYTES # (AUTO) 1.1 K/uL (0.8-4.8); LYMPHOCYTES % (AUTO) 13.9 % (20.0-44.0); MEAN CORPUSCULAR HGB CONC 34 g/dl (31.0-36.0); MEAN CORPUSCULAR VOLUME 81 fL (80-96); MONOCYTES # (AUTO) 0.7 K/uL (0.1-1.30); MONOCYTES % (AUTO) 9.3 % (2.0-12.0); NEUTROPHILS # (AUTO) 4.8 K/uL (1.8-8.9); NEUTROPHILS % (AUTO) 63.5 % (43.0-81.0); PLATELET COUNT (AUTO) 201 K/uL (150-450); WHITE BLOOD COUNT (AUTO) 7.6 K/uL (4.3-11.0)
--- NOTE | 2020-12-02 01:18 | NUR ---
BLOOD DRAWN AND HANDED TO THE HAND TIER. PT UNABLE TO PROVIDE URINE AT THIS TIME. WILL F/U
--- NOTE | 2020-12-02 01:23 | NUR ---
RAD AT BED SIDE TO TAKE THE PT TO CT
[2020-12-02 01:31] LABS: CARBON DIOXIDE 29 mmol/L (21-32); CHLORIDE 101 mmol/L (98-107); CREATININE 1.6 mg/dL (0.6-1.3); GLUCOSE 111 mg/dL (74-106); POTASSIUM 3.9 mmol/L (3.5-5.1); SODIUM SERUM 138 mmol/L (136-145); UREA NITROGEN, BLOOD 27 mg/dL (7-18)
[2020-12-02 01:36] LABS: ALANINE AMINOTRANSFERASE 40 U/L (12-78); ALBUMIN 3.9 g/dL (3.4-5.0); ALKALINE PHOSPHATASE 107 U/L (46-116); ASPARTATE AMINOTRANSFERASE 29 U/L (15-37); BILIRUBIN,DIRECT 0.1 mg/dL (0.0-0.2); BILIRUBIN,TOTAL 0.5 mg/dL (0.2-1.0); LIPASE 90 U/L (73-393); TOTAL PROTEIN, SERUM 7.4 g/dL (6.4-8.2)
--- NOTE | 2020-12-02 02:05 | NUR ---
urine collected and sent to lab
--- NOTE | 2020-12-02 02:06 | NUR ---
CALLED VIJAY FOR REPORT
[2020-12-02 02:22] LABS: BILIRUBIN,URINE Negative (NEGATIVE); COLOR,URINE YELLOW (YELLOW); LEUKOCYTE ESTERASE ,URINE Negative (NEGATIVE); NITRITE, URINE Negative (NEGATIVE); PROTEIN,URINE Negative (NEGATIVE); UGLUCOSE Negative (NEGATIVE); UROBILINOGEN,URINE 0.2 EU/dL (0.2)
[2020-12-02] MEDS ORDERED: DOCU-141 PO (02:32)
[2020-12-02] MEDS ORDERED: POLY17PO4 PO (02:32)
--- NOTE | 2020-12-02 02:44 | NUR ---
called roshan roman at [facility] and informed arturo bess re pt's discharge
--- NOTE | 2020-12-02 02:48 | NUR ---
TRANSPORTATION WAS ARRANGED BY [facility] BACK TO THE FACILITY. ETA: [phone]
[2020-12-02 03:45] VITALS: BP 161/72
--- NOTE | 2020-12-02 03:55 | NUR ---
pt was picked up by [facility] ambulance via gurney in stable condition
== END 2020-12-02 03:55 ==
LOC: ER 00:40
DX: K59.00 Constipation, unspecified (principal); R94.31 Abnormal electrocardiogram [ECG] [EKG]; G80.9 Cerebral palsy, unspecified; I10 Essential (primary) hypertension; I48.91 Unspecified atrial fibrillation; E78.5 Hyperlipidemia, unspecified; F32.9 Major depressive disorder, single episode, unspecified; Z98.890 Other specified postprocedural states; Z88.8 Allergy status to other drugs, medicaments and biological substances; Z79.82 Long term (current) use of aspirin; Z79.899 Other long term (current) drug therapy
CPT/HCPCS: 36415; 71045; 74176; 80048; 80076; 81003; 83690; 84484; 85025; 85730; 93005; 96374; 99285; J2405; J7040

== ENCOUNTER 2022-01-22 16:00 | Emergency (ER) | payer MEDICARE, OTHER ==
[~2022-01-22] VITALS: Ht 175.3 cm; Wt 77.1 kg
[~2022-01-22 16:00] MED LIST changes: +DOCU-141 PO; +POLY17PO4 PO
[2022-01-22 16:03] VITALS: BP 140/81
--- NOTE | 2022-01-22 16:09 | NUR ---
DR KHAN AT BEDSIDE FOR EVAL
[2022-01-22] MEDS ORDERED: FOLI1TAB26 PO (16:17)
[2022-01-22] MEDS ORDERED: BACL10TA PO (16:17)
[2022-01-22] MEDS ORDERED: CHOL100043 PO (16:17)
[2022-01-22] MEDS ORDERED: DILT30TA14 PO (16:17)
[2022-01-22] MEDS ORDERED: ACET-2605 PO (16:17)
[2022-01-22] MEDS ORDERED: ASCO-495 PO (16:17)
[2022-01-22] MEDS ORDERED: HYDR-500 PO (16:17)
[2022-01-22] MEDS ORDERED: VITA400C74 PO (16:17)
[2022-01-22] MEDS ORDERED: LORA10TA7 PO (16:17)
[2022-01-22] MEDS ORDERED: HYDROCORTISONE 1% CREAM 28.35 GM TUBE TP ONE (16:19)
--- NOTE | 2022-01-22 16:22 | NUR ---
[facility] CALLED FOR TRANSPORT ETA [phone]
[2022-01-22] MEDS ORDERED: HYDROCORTISONE 1% CREAM 30 GM TUBE TP ONE (16:30)
--- NOTE | 2022-01-22 16:35 | NUR ---
hydrocortisone cream applied topically to affected areas.
--- NOTE | 2022-01-22 17:52 | NUR ---
emt at bedside to pickup pt
--- NOTE | 2022-01-22 17:55 | NUR ---
PICKED UP BY TRANSPORT IN STABLE CONDITION
== END 2022-01-22 17:59 ==
LOC: ER 16:06
DX: R58 Hemorrhage, not elsewhere classified (principal); I10 Essential (primary) hypertension; I48.91 Unspecified atrial fibrillation; E78.5 Hyperlipidemia, unspecified; F32.A Depression, unspecified; Z88.8 Allergy status to other drugs, medicaments and biological substances; Z79.899 Other long term (current) drug therapy

== ENCOUNTER 2022-02-19 18:12 | Emergency (ER) | payer MEDICARE, OTHER ==
[~2022-02-19] VITALS: Ht 175.3 cm; Wt 72.6 kg
[~2022-02-19 18:12] MED LIST changes: +ACET-2605 PO; +ASCO-495 PO; +BACL10TA PO; +CHOL100043 PO; -DILT180C66 PO; +DILT30TA14 PO; -DOCU-141 PO; -FERR325T23 PO; +FOLI1TAB26 PO; +HYDR-500 PO; -LORA-672 PO; +LORA10TA7 PO; -POLY17PO4 PO; +VITA400C74 PO
--- NOTE | 2022-02-19 20:00 | NUR ---
patient bibra from [facility] s/o right foot pain s/p glf. patient is a/o x 3, rr even and unlabored, no sob noted, no acute distress noted. patient resting comfortable in bed.
[2022-02-19] MEDS ORDERED: MORPHINE SULFATE INJ 4 MG/ML DISP.SYRIN ONE (20:51)
--- NOTE | 2022-02-19 20:54 | NUR ---
rad at bedside
[2022-02-19] MEDS ORDERED: MORPHINE SULFATE INJ 2 MG/ML DISP.SYRIN IV ONE (21:00)
[2022-02-20] MEDS ORDERED: HYDR-4303 PO (00:41)
--- NOTE | 2022-02-20 00:47 | NUR ---
CALLED KAELYN SANTIAGO AND GAVE UPDATE
--- NOTE | 2022-02-20 00:54 | NUR ---
[facility] ETA: 1.5-2 HOURS
[2022-02-20] MEDS ORDERED: HYDROCODONE/APAP 7.5/325MG 1 EACH TABLET PO ONE (01:00)
--- NOTE | 2022-02-20 02:26 | NUR ---
[facility] AT BED SIDE TO SURVEY RESEARCH MANAGER THE PT
--- NOTE | 2022-02-20 02:36 | NUR ---
WAS PICKED UP BY [facility] AND D/C'D TO THE FACILITY IN STABLE CONDITION
[2022-02-20 02:39] VITALS: BP 145/70
== END 2022-02-20 02:39 ==
LOC: ER 18:14
DX: S70.02XA Contusion of left hip, initial encounter (principal); M25.572 Pain in left ankle and joints of left foot; I10 Essential (primary) hypertension; I48.91 Unspecified atrial fibrillation; E78.5 Hyperlipidemia, unspecified; F32.A Depression, unspecified; Z88.8 Allergy status to other drugs, medicaments and biological substances; Z79.899 Other long term (current) drug therapy; W18.30XA Fall on same level, unspecified, initial encounter; Y93.89 Activity, other specified; Y92.89 Other specified places as the place of occurrence of the external cause; Y99.8 Other external cause status
CPT/HCPCS: 99284; 96374; 29515; 72170; 73610; 73552; J2270

== ENCOUNTER 2022-12-27 17:19 | Emergency (ER) | payer MEDICARE, OTHER ==
[~2022-12-27] VITALS: Ht 175.3 cm; Wt 75.3 kg
[~2022-12-27 17:19] MED LIST changes: +HYDR-4303 PO
[2022-12-27 21:18] VITALS: BP 131/73; TEMP 98; O2SAT 99
== END 2022-12-27 21:18 | disposition home health service (06) ==
LOC: ER 17:22
DX: S09.90XA Unspecified injury of head, initial encounter (principal); I10 Essential (primary) hypertension; I48.91 Unspecified atrial fibrillation; E78.5 Hyperlipidemia, unspecified; F32.A Depression, unspecified; Z88.8 Allergy status to other drugs, medicaments and biological substances; Z79.899 Other long term (current) drug therapy; W05.0XXA Fall from non-moving wheelchair, initial encounter; Y93.89 Activity, other specified; Y92.89 Other specified places as the place of occurrence of the external cause; Y99.8 Other external cause status
CPT/HCPCS: 99284; 72125; 71045; 72170; 70450; J7040

== ENCOUNTER 2023-02-04 16:05 | Emergency (ER) | payer MEDICARE, OTHER ==
[~2023-02-04] VITALS: Ht 175.3 cm; Wt 72.6 kg
[2023-02-04 21:01] VITALS: BP 120/70; TEMP 98.8; O2SAT 100
== END 2023-02-04 21:02 ==
LOC: ER 16:10
DX: M25.552 Pain in left hip (principal); M25.562 Pain in left knee; I10 Essential (primary) hypertension; I48.91 Unspecified atrial fibrillation; E78.5 Hyperlipidemia, unspecified; F32.A Depression, unspecified; Z88.8 Allergy status to other drugs, medicaments and biological substances; Z79.899 Other long term (current) drug therapy; W01.0XXA Fall on same level from slipping, tripping and stumbling without subsequent striking against object, initial encounter; Y93.89 Activity, other specified; Y92.129 Unspecified place in nursing home as the place of occurrence of the external cause; Y99.8 Other external cause status
CPT/HCPCS: 73502; 73564-TC

== ENCOUNTER 2023-10-23 09:29 | Inpatient (IN) | payer MEDICARE ==
[~2023-10-23] VITALS: Ht 175.3 cm; Wt 66.7 kg
[~2023-10-23 09:29] MED LIST changes: +CICL6.6S5 TP
[2023-10-23 10:15] LABS: BASOPHILS # (AUTO) 0.1 K/uL (0.0-0.2); EOSINOPHILS # (AUTO) 0.6 K/uL (0.0-0.7); EOSINOPHILS % (AUTO) 8.5 % (0.0-6.0); HEMATOCRIT 38 % (39-51); HEMOGLOBIN 12.7 g/dL (13.5-17.5); LYMPHOCYTES # (AUTO) 0.7 K/uL (0.8-4.8); LYMPHOCYTES % (AUTO) 10.7 % (20.0-44.0); MEAN CORPUSCULAR HEMOGLOBIN 30 PG (26.0-33.0); MEAN CORPUSCULAR HGB CONC 34 g/dl (31.0-36.0); MEAN CORPUSCULAR VOLUME 89 fL (80-96); MONOCYTES # (AUTO) 0.4 K/uL (0.1-1.30); MONOCYTES % (AUTO) 6.2 % (2.0-12.0); NEUTROPHILS # (AUTO) 4.8 K/uL (1.8-8.9); NEUTROPHILS % (AUTO) 73.6 % (43.0-81.0); PLATELET COUNT (AUTO) 131 K/uL (150-450); RED BLOOD CELL COUNT(AUTO) 4.24 MIL/uL (4.5-6.0); RED CELL DISTRIBUTION WIDTH 19.2 % (11.5-15.0); WHITE BLOOD COUNT (AUTO) 6.6 K/uL (4.3-11.0)
[2023-10-23] MEDS: IV NS 0.9% 1,000 ML BAG IV ONE ×3 (10:19→13:18)
[2023-10-23 10:32] LABS: LACTIC ACID 1.1 mmol/L (0.4-2.0)
[2023-10-23 10:36] LABS: INR 1.15 (0.91-1.10); PARTIAL THROMBOPLASTIN TIME 30.5 SEC (24.3-34.3); PROTHROMBIN TIME 11.7 SECS (9.2-11.1)
[2023-10-23 10:37] LABS: CALCIUM, SERUM 9.1 mg/dL (8.5-10.1); CARBON DIOXIDE 21 mmol/L (21-32); CHLORIDE 103 mmol/L (98-107); CREATININE 1.6 mg/dL (0.6-1.3); GLUCOSE 104 mg/dL (74-106); POTASSIUM 3.9 mmol/L (3.5-5.1); SODIUM SERUM 134 mmol/L (136-145); UREA NITROGEN, BLOOD 31 mg/dL (7-18)
[2023-10-23 10:41] LABS: ALANINE AMINOTRANSFERASE 28 U/L (12-78); ALBUMIN 3.9 g/dL (3.4-5.0); ALKALINE PHOSPHATASE 79 U/L (46-116); ASPARTATE AMINOTRANSFERASE 20 U/L (15-37); BILIRUBIN,DIRECT 0.2 mg/dL (0.0-0.2); BILIRUBIN,TOTAL 0.9 mg/dL (0.2-1.0); TOTAL PROTEIN, SERUM 7.2 g/dL (6.4-8.2)
[2023-10-23 11:01] LABS: THYROID STIMULATING HORMONE 2.12 uIU/mL (0.358-3.74)
[2023-10-23 11:34] LABS: APPEARANCE,URINE Clear (CLEAR); BILIRUBIN,URINE Negative (NEGATIVE); BLOOD, URINE Negative Ery/uL (NEGATIVE); COLOR,URINE YELLOW (YELLOW); KETONES,URINE Negative (NEGATIVE); LEUKOCYTE ESTERASE ,URINE Negative (NEGATIVE); NITRITE, URINE Negative (NEGATIVE); PH,URINE 5.5 (5.0-8.0); PROTEIN,URINE Negative (NEGATIVE); UGLUCOSE 250 MG/DL mg/dL (NEGATIVE); UROBILINOGEN,URINE 0.2 EU/dL (0.2)
[2023-10-23] MEDS ORDERED: VITA1TAB37 PO (13:50)
[2023-10-23] MEDS ORDERED: OLAN5TAB3 PO (13:50)
[2023-10-23] MEDS ORDERED: TRAZ-182 PO (13:50)
[2023-10-23] MEDS ORDERED: SENN8.6T19 PO (13:50)
[2023-10-23] MEDS ORDERED: FERR325T23 PO (13:50)
[2023-10-23] MEDS ORDERED: IPRA4AER IH (13:50)
[2023-10-23] MEDS ORDERED: CALC500T53 PO (13:50)
[2023-10-23] MEDS ORDERED: PANT20TA17 PO (13:50)
[2023-10-23] MEDS ORDERED: DOCU100C36 PO (13:50)
[2023-10-23] MEDS ORDERED: DAPA10TA PO (13:50)
[2023-10-23] MEDS ORDERED: CARV6.252 PO (13:50)
[2023-10-23] MEDS ORDERED: CLON0.1T PO (13:50)
[2023-10-23] MEDS ORDERED: FOLI0.4T6 PO (13:50)
[2023-10-23] MEDS ORDERED: VALS40TA12 PO (13:50)
[2023-10-23] MEDS ORDERED: LOPE2CAP PO (13:50)
[2023-10-23] MEDS ORDERED: ESCI10TA PO (13:50)
[2023-10-23] MEDS ORDERED: MELO-107 PO (13:50)
[2023-10-23] MEDS ORDERED: METH1TAB69 PO (13:50)
[2023-10-23] MEDS ORDERED: CARB15DR EACHEYE ×2 (13:50)
[2023-10-23] MEDS ORDERED: DICL100G34 TP (13:50)
[2023-10-23] MEDS ORDERED: SPIR25TA6 PO (13:50)
[2023-10-23] MEDS ORDERED: TRAM50TA2 PO (13:50)
[2023-10-23] MEDS ORDERED: NICOTINAMIDE PO (13:50)
[2023-10-23] MEDS ORDERED: DEXT30SU5 PO (13:50)
[2023-10-23] MEDS ORDERED: MAGNESIUM HYDROXIDE 30 ML UDC PO PRN (15:30)
[2023-10-23] MEDS ORDERED: ONDANSETRON HCL/PF 4 MG/2 ML VIAL IVP PRN (15:30)
[2023-10-23] MEDS ORDERED: MAG HYDROX/AL HYDROX/SIMETH 30 ML UDC PO PRN (15:30)
[2023-10-23] MEDS: ENOXAPARIN SODIUM 30 MG/0.3 ML DISP.SYRIN SQ SCH (15:47)
[2023-10-23 16:00] VITALS: BP 108/89; TEMP 98.5; O2SAT 93
[2023-10-23] MEDS ORDERED: Z GUARD REMEDY 4 OZ OINT TP PRN (16:00)
[2023-10-23] MEDS: IV 1/2NS 1000 ML 1,000 ML IV PRN (18:35)
[2023-10-23 20:00] VITALS: BP 110/79; TEMP 98.4; O2SAT 99
[2023-10-23] MEDS: ZOLPIDEM TARTRATE 5 MG TABLET PO PRN (21:59)
[2023-10-24] VITALS (24 sets, daily range): BP systolic 84–118; BP diastolic 50–94; TEMP 96.8–98.3; O2SAT 91–100
[2023-10-24 07:25] LABS: BASOPHILS # (AUTO) 0.1 K/uL (0.0-0.2); BASOPHILS % (AUTO) 1.1 % (0.0-2.0); EOSINOPHILS # (AUTO) 0.6 K/uL (0.0-0.7); EOSINOPHILS % (AUTO) 8.6 % (0.0-6.0); HEMATOCRIT 38 % (39-51); HEMOGLOBIN 12.6 g/dL (13.5-17.5); LYMPHOCYTES # (AUTO) 0.9 K/uL (0.8-4.8); MEAN CORPUSCULAR HEMOGLOBIN 31 PG (26.0-33.0); MEAN CORPUSCULAR HGB CONC 33 g/dl (31.0-36.0); MEAN CORPUSCULAR VOLUME 92 fL (80-96); MONOCYTES # (AUTO) 0.5 K/uL (0.1-1.30); MONOCYTES % (AUTO) 6.7 % (2.0-12.0); NEUTROPHILS # (AUTO) 4.9 K/uL (1.8-8.9); NEUTROPHILS % (AUTO) 70.6 % (43.0-81.0); PLATELET COUNT (AUTO) 120 K/uL (150-450); RED BLOOD CELL COUNT(AUTO) 4.09 MIL/uL (4.5-6.0); RED CELL DISTRIBUTION WIDTH 19.2 % (11.5-15.0)
[2023-10-24 07:45] LABS: CARBON DIOXIDE 17 mmol/L (21-32); CHLORIDE 106 mmol/L (98-107); CREATININE 1.3 mg/dL (0.6-1.3); GLUCOSE 105 mg/dL (74-106); MAGNESIUM 2.3 mg/dL (1.8-2.4); PHOSPHORUS 4.2 mg/dL (2.5-4.9); POTASSIUM 4.4 mmol/L (3.5-5.1); SODIUM SERUM 135 mmol/L (136-145); UREA NITROGEN, BLOOD 29 mg/dL (7-18)
[2023-10-24] MEDS: PANTOPRAZOLE 40 MG TABLET.DR PO SCH (08:00)
[2023-10-24 08:12] LABS: CHOLESTEROL 102 mg/dL (<200); HDL CHOLESTEROL 38 mg/dL (40-60); LDL 59 mg/dL (0-99); TRIGLYCERIDES 69 mg/dL (30-150)
[2023-10-24 13:59] LABS: THYROID STIMULATING HORMONE 1.58 uIU/mL (0.358-3.74)
[2023-10-24] MEDS: CALCIUM CARBONATE (1250) 500 MG TABLET PO SCH (15:13)
[2023-10-24] MEDS: ASPIRIN EC 81 MG TABLET.DR PO SCH (15:13)
[2023-10-24] MEDS: DILTIAZEM HCL IV 125 MG in IV NS 0.9% 100 ML IV PRN (15:19)
[2023-10-24] MEDS: ENOXAPARIN SODIUM 60 MG/0.6 ML DISP.SYRIN SQ SCH (15:21)
[2023-10-24] MEDS: OLANZAPINE 5 MG TABLET PO SCH (17:06)
[2023-10-24] MEDS: DOCUSATE SODIUM 100 MG CAPSULE PO SCH (17:06)
[2023-10-24] MEDS: ACETAMINOPHEN 325 MG TABLET PO PRN (18:26)
[2023-10-24] MEDS: METOPROLOL TARTRATE 25 MG TABLET PO SCH (20:48)
[2023-10-24] MEDS: FUROSEMIDE 20 MG/2 ML VIAL IV SCH (20:48)
[2023-10-24] MEDS: ATORVASTATIN 10 MG TABLET PO SCH (22:51)
[2023-10-24] MEDS: TAMSULOSIN 0.4 MG CAP.SR.24H PO SCH (22:52)
[2023-10-24] MEDS: SENNOSIDES 8.6 MG TABLET PO SCH (22:52)
[2023-10-24] MEDS: TRAZODONE 50 MG TABLET PO SCH (22:52)
[2023-10-25] VITALS (87 sets, daily range): BP systolic 64–121; BP diastolic 36–104; TEMP 97.2–98.2; O2SAT 89–100
[2023-10-25 04:10] LABS: ALANINE AMINOTRANSFERASE 14 U/L (12-78); ALKALINE PHOSPHATASE 78 U/L (46-116); ASPARTATE AMINOTRANSFERASE 14 U/L (15-37); CARBON DIOXIDE 19 mmol/L (21-32); CHLORIDE 102 mmol/L (98-107); CREATININE 1.4 mg/dL (0.6-1.3); GLUCOSE 114 mg/dL (74-106); MAGNESIUM 1.9 mg/dL (1.8-2.4); POTASSIUM 4.2 mmol/L (3.5-5.1); SODIUM SERUM 133 mmol/L (136-145); TOTAL PROTEIN, SERUM 6.4 g/dL (6.4-8.2); UREA NITROGEN, BLOOD 29 mg/dL (7-18)
[2023-10-25 04:34] LABS: BASOPHILS # (AUTO) 0.1 K/uL (0.0-0.2); BASOPHILS % (AUTO) 0.7 % (0.0-2.0); EOSINOPHILS # (AUTO) 0.5 K/uL (0.0-0.7); EOSINOPHILS % (AUTO) 6.6 % (0.0-6.0); HEMATOCRIT 39 % (39-51); HEMOGLOBIN 12.7 g/dL (13.5-17.5); LYMPHOCYTES # (AUTO) 0.9 K/uL (0.8-4.8); LYMPHOCYTES % (AUTO) 11.6 % (20.0-44.0); MEAN CORPUSCULAR HEMOGLOBIN 31 PG (26.0-33.0); MEAN CORPUSCULAR HGB CONC 32 g/dl (31.0-36.0); MEAN CORPUSCULAR VOLUME 97 fL (80-96); MONOCYTES # (AUTO) 0.6 K/uL (0.1-1.30); MONOCYTES % (AUTO) 7.4 % (2.0-12.0); NEUTROPHILS # (AUTO) 5.6 K/uL (1.8-8.9); NEUTROPHILS % (AUTO) 73.7 % (43.0-81.0); PLATELET COUNT (AUTO) 108 K/uL (150-450); RED BLOOD CELL COUNT(AUTO) 4.04 MIL/uL (4.5-6.0); RED CELL DISTRIBUTION WIDTH 20.3 % (11.5-15.0); WHITE BLOOD COUNT (AUTO) 7.6 K/uL (4.3-11.0)
[2023-10-25] MEDS: FLUDROCORTISONE 0.1 MG TABLET PO SCH (08:18)
[2023-10-25] MEDS: FERROUS SULFATE (325 MG) 325 MG/TAB TABLET PO SCH (08:18)
[2023-10-25] MEDS: SPIRONOLACTONE 25 MG TABLET PO SCH (08:19)
[2023-10-25] MEDS: LORATADINE 10 MG TABLET PO SCH (08:20)
[2023-10-25] MEDS: ESCITALOPRAM OXALATE (10 MG) 10 MG TABLET PO SCH (08:20)
[2023-10-25] MEDS ORDERED: AMIODARONE 450 MG in IV D5W 250 ML IV PRN (09:45)
[2023-10-25] MEDS: AMIODARONE 150 MG in IV D5W 100 ML IV ONE (09:48)
[2023-10-25] MEDS: AMIODARONE 450 MG in IV D5W 241 ML IV PRN (10:00)
[2023-10-25 10:07] LABS: FOLIC ACID > 20.0 ng/mL (>3.0)
[2023-10-25 13:33] LABS: ABG BASE EXCESS -7.7 mmol/L; ABG OXYGEN SATURATION 94.2 % (92.0-98.5); ABG PCO2 30.2 mmHg (35.0-45.0); ABG PH 7.356 (7.350-7.450); ABG PO2 76.7 mmHg (75.0-100.0); ABG TOTAL HEMOGLOBIN 13.5 G/dL (13.5-18.0); AaDO2 87.3 mmHg; COHb 0.9 % (0.5-1.5); O2Hb 93.4 % (94.0-97.0); SITE, ABG Right Brachial; VENT MODE, BG NASAL CANNULA
[2023-10-25] MEDS: IV NS 0.9% 500 ML IV ONE (13:42)
[2023-10-26] VITALS (92 sets, daily range): BP systolic 71–141; BP diastolic 52–126; TEMP 97.3–98.4; O2SAT 89–100
[2023-10-26 04:35] LABS: BASOPHILS # (AUTO) 0.1 K/uL (0.0-0.2); BASOPHILS % (AUTO) 0.8 % (0.0-2.0); EOSINOPHILS # (AUTO) 0.6 K/uL (0.0-0.7); EOSINOPHILS % (AUTO) 6.7 % (0.0-6.0); HEMATOCRIT 37 % (39-51); HEMOGLOBIN 12.5 g/dL (13.5-17.5); LYMPHOCYTES # (AUTO) 0.8 K/uL (0.8-4.8); LYMPHOCYTES % (AUTO) 9.5 % (20.0-44.0); MEAN CORPUSCULAR HEMOGLOBIN 31 PG (26.0-33.0); MEAN CORPUSCULAR HGB CONC 34 g/dl (31.0-36.0); MEAN CORPUSCULAR VOLUME 90 fL (80-96); MONOCYTES # (AUTO) 0.6 K/uL (0.1-1.30); MONOCYTES % (AUTO) 7.3 % (2.0-12.0); NEUTROPHILS # (AUTO) 6.2 K/uL (1.8-8.9); NEUTROPHILS % (AUTO) 75.7 % (43.0-81.0); PLATELET COUNT (AUTO) 115 K/uL (150-450); RED BLOOD CELL COUNT(AUTO) 4.07 MIL/uL (4.5-6.0); RED CELL DISTRIBUTION WIDTH 18.7 % (11.5-15.0); WHITE BLOOD COUNT (AUTO) 8.2 K/uL (4.3-11.0)
[2023-10-26 04:57] LABS: ALANINE AMINOTRANSFERASE 14 U/L (12-78); ALBUMIN 3.1 g/dL (3.4-5.0); ALKALINE PHOSPHATASE 75 U/L (46-116); ASPARTATE AMINOTRANSFERASE 10 U/L (15-37); CALCIUM, SERUM 8.8 mg/dL (8.5-10.1); CARBON DIOXIDE 18 mmol/L (21-32); CHLORIDE 105 mmol/L (98-107); CREATININE 1.5 mg/dL (0.6-1.3); GLUCOSE 113 mg/dL (74-106); MAGNESIUM 1.9 mg/dL (1.8-2.4); POTASSIUM 3.9 mmol/L (3.5-5.1); SODIUM SERUM 137 mmol/L (136-145); TOTAL PROTEIN, SERUM 6.8 g/dL (6.4-8.2); UREA NITROGEN, BLOOD 33 mg/dL (7-18)
[2023-10-27] VITALS (53 sets, daily range): BP systolic 69–138; BP diastolic 48–106; TEMP 97.1–98; O2SAT 92–100
[2023-10-27 04:58] LABS: BASOPHILS % (AUTO) 0.5 % (0.0-2.0); EOSINOPHILS # (AUTO) 0.7 K/uL (0.0-0.7); EOSINOPHILS % (AUTO) 8.3 % (0.0-6.0); HEMATOCRIT 37 % (39-51); HEMOGLOBIN 12.8 g/dL (13.5-17.5); LYMPHOCYTES # (AUTO) 0.8 K/uL (0.8-4.8); LYMPHOCYTES % (AUTO) 9.1 % (20.0-44.0); MEAN CORPUSCULAR HEMOGLOBIN 31 PG (26.0-33.0); MEAN CORPUSCULAR HGB CONC 35 g/dl (31.0-36.0); MEAN CORPUSCULAR VOLUME 90 fL (80-96); MONOCYTES # (AUTO) 0.6 K/uL (0.1-1.30); MONOCYTES % (AUTO) 7.2 % (2.0-12.0); NEUTROPHILS # (AUTO) 6.3 K/uL (1.8-8.9); NEUTROPHILS % (AUTO) 74.9 % (43.0-81.0); PLATELET COUNT (AUTO) 119 K/uL (150-450); RED CELL DISTRIBUTION WIDTH 18.6 % (11.5-15.0); WHITE BLOOD COUNT (AUTO) 8.4 K/uL (4.3-11.0)
[2023-10-27 05:20] LABS: ALANINE AMINOTRANSFERASE 16 U/L (12-78); ALKALINE PHOSPHATASE 74 U/L (46-116); ASPARTATE AMINOTRANSFERASE 13 U/L (15-37); BILIRUBIN,TOTAL 0.8 mg/dL (0.2-1.0); CALCIUM, SERUM 8.4 mg/dL (8.5-10.1); CARBON DIOXIDE 23 mmol/L (21-32); CHLORIDE 102 mmol/L (98-107); CREATININE 1.7 mg/dL (0.6-1.3); GLUCOSE 104 mg/dL (74-106); MAGNESIUM 1.9 mg/dL (1.8-2.4); PHOSPHORUS 4.5 mg/dL (2.5-4.9); POTASSIUM 3.6 mmol/L (3.5-5.1); SODIUM SERUM 135 mmol/L (136-145); TOTAL PROTEIN, SERUM 6.8 g/dL (6.4-8.2); UREA NITROGEN, BLOOD 36 mg/dL (7-18)
[2023-10-27] MEDS: DIGOXIN INJ 0.5 MG/2 ML AMPUL IV SCH (09:21)
[2023-10-28] VITALS: BP 138/77; TEMP 98.1; O2SAT 100; O2SAT 99
[2023-10-28] MEDS: ENOXAPARIN SODIUM 60 MG/0.6 ML DISP.SYRIN SQ SCH (03:10)
[2023-10-28 04:00] VITALS: BP 116/84; TEMP 98.5; O2SAT 99
[2023-10-28 06:48] LABS: BASOPHILS % (AUTO) 0.5 % (0.0-2.0); EOSINOPHILS # (AUTO) 0.3 K/uL (0.0-0.7); EOSINOPHILS % (AUTO) 3.1 % (0.0-6.0); HEMATOCRIT 40 % (39-51); HEMOGLOBIN 13.6 g/dL (13.5-17.5); LYMPHOCYTES # (AUTO) 0.7 K/uL (0.8-4.8); LYMPHOCYTES % (AUTO) 8.1 % (20.0-44.0); MEAN CORPUSCULAR HEMOGLOBIN 31 PG (26.0-33.0); MEAN CORPUSCULAR HGB CONC 34 g/dl (31.0-36.0); MEAN CORPUSCULAR VOLUME 91 fL (80-96); MONOCYTES # (AUTO) 0.7 K/uL (0.1-1.30); MONOCYTES % (AUTO) 8.6 % (2.0-12.0); NEUTROPHILS # (AUTO) 6.5 K/uL (1.8-8.9); NEUTROPHILS % (AUTO) 79.7 % (43.0-81.0); PLATELET COUNT (AUTO) 137 K/uL (150-450); RED BLOOD CELL COUNT(AUTO) 4.46 MIL/uL (4.5-6.0); RED CELL DISTRIBUTION WIDTH 18.2 % (11.5-15.0); WHITE BLOOD COUNT (AUTO) 8.1 K/uL (4.3-11.0)
[2023-10-28 07:08] LABS: ALANINE AMINOTRANSFERASE 15 U/L (12-78); ALBUMIN 3.3 g/dL (3.4-5.0); ALKALINE PHOSPHATASE 80 U/L (46-116); ASPARTATE AMINOTRANSFERASE 11 U/L (15-37); BILIRUBIN,TOTAL 0.8 mg/dL (0.2-1.0); CALCIUM, SERUM 9.5 mg/dL (8.5-10.1); CARBON DIOXIDE 26 mmol/L (21-32); CHLORIDE 102 mmol/L (98-107); CREATININE 1.6 mg/dL (0.6-1.3); GLUCOSE 106 mg/dL (74-106); MAGNESIUM 2.2 mg/dL (1.8-2.4); PHOSPHORUS 4.5 mg/dL (2.5-4.9); POTASSIUM 3.8 mmol/L (3.5-5.1); SODIUM SERUM 138 mmol/L (136-145); TOTAL PROTEIN, SERUM 7.3 g/dL (6.4-8.2); UREA NITROGEN, BLOOD 39 mg/dL (7-18)
[2023-10-28 08:00] VITALS: BP 105/70; TEMP 98.4; O2SAT 99
[2023-10-28] MEDS: APIXABAN 2.5 MG TABLET PO SCH (11:06)
[2023-10-28 12:00] VITALS: BP 104/78; TEMP 98.2; O2SAT 99
[2023-10-28] MEDS: DIGOXIN 0.25 MG TABLET PO SCH (12:46)
[2023-10-28 16:00] VITALS: BP 100/65; TEMP 98.2; O2SAT 99
[2023-10-28 20:00] VITALS: BP 140/72; TEMP 98.8; O2SAT 99
[2023-10-29] VITALS: BP 94/60; TEMP 98.5; O2SAT 99
[2023-10-29 04:00] VITALS: BP 94/74; TEMP 98; O2SAT 98
[2023-10-29 08:25] VITALS: BP 118/65; TEMP 98.2; O2SAT 99
[2023-10-29 08:26] LABS: BASOPHILS # (AUTO) 0.1 K/uL (0.0-0.2); BASOPHILS % (AUTO) 0.9 % (0.0-2.0); EOSINOPHILS # (AUTO) 0.6 K/uL (0.0-0.7); EOSINOPHILS % (AUTO) 7.8 % (0.0-6.0); HEMATOCRIT 41 % (39-51); HEMOGLOBIN 13.3 g/dL (13.5-17.5); LYMPHOCYTES # (AUTO) 0.9 K/uL (0.8-4.8); LYMPHOCYTES % (AUTO) 10.9 % (20.0-44.0); MEAN CORPUSCULAR HEMOGLOBIN 30 PG (26.0-33.0); MEAN CORPUSCULAR HGB CONC 33 g/dl (31.0-36.0); MEAN CORPUSCULAR VOLUME 92 fL (80-96); MONOCYTES # (AUTO) 0.8 K/uL (0.1-1.30); MONOCYTES % (AUTO) 9.7 % (2.0-12.0); NEUTROPHILS # (AUTO) 5.8 K/uL (1.8-8.9); NEUTROPHILS % (AUTO) 70.7 % (43.0-81.0); PLATELET COUNT (AUTO) 131 K/uL (150-450); RED BLOOD CELL COUNT(AUTO) 4.39 MIL/uL (4.5-6.0); RED CELL DISTRIBUTION WIDTH 17.7 % (11.5-15.0); WHITE BLOOD COUNT (AUTO) 8.2 K/uL (4.3-11.0)
[2023-10-29 08:33] LABS: ALANINE AMINOTRANSFERASE 14 U/L (12-78); ALBUMIN 3.1 g/dL (3.4-5.0); ALKALINE PHOSPHATASE 77 U/L (46-116); ASPARTATE AMINOTRANSFERASE 12 U/L (15-37); BILIRUBIN,TOTAL 0.6 mg/dL (0.2-1.0); CALCIUM, SERUM 9.3 mg/dL (8.5-10.1); CARBON DIOXIDE 23 mmol/L (21-32); CHLORIDE 103 mmol/L (98-107); CREATININE 1.7 mg/dL (0.6-1.3); GLUCOSE 100 mg/dL (74-106); MAGNESIUM 2.3 mg/dL (1.8-2.4); PHOSPHORUS 4.3 mg/dL (2.5-4.9); POTASSIUM 3.9 mmol/L (3.5-5.1); SODIUM SERUM 136 mmol/L (136-145); TOTAL PROTEIN, SERUM 7.1 g/dL (6.4-8.2); UREA NITROGEN, BLOOD 52 mg/dL (7-18)
[2023-10-29 16:20] VITALS: BP 104/78; TEMP 98.2; O2SAT 99
[2023-10-29 20:00] VITALS: BP 105/86; TEMP 97.9; O2SAT 97
[2023-10-29 20:11] LABS: METHYLMALONIC ACID 156 nmol/L (0-378)
[2023-10-30] VITALS: BP 100/68; TEMP 97.9; O2SAT 100
[2023-10-30 04:00] VITALS: BP 99/70; TEMP 97.9; O2SAT 97
[2023-10-30 07:13] LABS: BASOPHILS # (AUTO) 0.1 K/uL (0.0-0.2); BASOPHILS % (AUTO) 0.8 % (0.0-2.0); EOSINOPHILS # (AUTO) 0.7 K/uL (0.0-0.7); EOSINOPHILS % (AUTO) 8.8 % (0.0-6.0); HEMATOCRIT 39 % (39-51); HEMOGLOBIN 13.3 g/dL (13.5-17.5); LYMPHOCYTES # (AUTO) 0.8 K/uL (0.8-4.8); LYMPHOCYTES % (AUTO) 10.3 % (20.0-44.0); MEAN CORPUSCULAR HEMOGLOBIN 31 PG (26.0-33.0); MEAN CORPUSCULAR HGB CONC 34 g/dl (31.0-36.0); MEAN CORPUSCULAR VOLUME 90 fL (80-96); MONOCYTES # (AUTO) 0.6 K/uL (0.1-1.30); MONOCYTES % (AUTO) 7.6 % (2.0-12.0); NEUTROPHILS # (AUTO) 5.9 K/uL (1.8-8.9); NEUTROPHILS % (AUTO) 72.5 % (43.0-81.0); PLATELET COUNT (AUTO) 149 K/uL (150-450); RED BLOOD CELL COUNT(AUTO) 4.35 MIL/uL (4.5-6.0); RED CELL DISTRIBUTION WIDTH 17.5 % (11.5-15.0); WHITE BLOOD COUNT (AUTO) 8.1 K/uL (4.3-11.0)
[2023-10-30 07:36] LABS: ALANINE AMINOTRANSFERASE 16 U/L (12-78); ALBUMIN 3.2 g/dL (3.4-5.0); ALKALINE PHOSPHATASE 74 U/L (46-116); ASPARTATE AMINOTRANSFERASE 21 U/L (15-37); BILIRUBIN,TOTAL 0.7 mg/dL (0.2-1.0); CALCIUM, SERUM 9.6 mg/dL (8.5-10.1); CARBON DIOXIDE 24 mmol/L (21-32); CHLORIDE 102 mmol/L (98-107); CREATININE 1.4 mg/dL (0.6-1.3); GLUCOSE 100 mg/dL (74-106); MAGNESIUM 2.3 mg/dL (1.8-2.4); PHOSPHORUS 4.2 mg/dL (2.5-4.9); POTASSIUM 3.7 mmol/L (3.5-5.1); SODIUM SERUM 137 mmol/L (136-145); TOTAL PROTEIN, SERUM 7.2 g/dL (6.4-8.2); UREA NITROGEN, BLOOD 54 mg/dL (7-18)
[2023-10-30 08:00] VITALS: BP 100/70; TEMP 97.6; O2SAT 96
[2023-10-30 12:00] VITALS: BP 103/73; TEMP 97.5; O2SAT 97
== END 2023-10-30 15:56 | DRG 308 ==
LOC: ER 09:38 → TELE1 12:45 → TELE-TD 10-24 17:31 → ICU 10-24 19:19 → TELE1 10-27 17:57 → MEDSG1 10-30 12:51
DX: I48.91 Unspecified atrial fibrillation (principal); I50.23 Acute on chronic systolic (congestive) heart failure; J96.01 Acute respiratory failure with hypoxia; N17.9 Acute kidney failure, unspecified; E87.1 Hypo-osmolality and hyponatremia; E87.20 Acidosis, unspecified; G93.40 Encephalopathy, unspecified; I11.0 Hypertensive heart disease with heart failure; D69.6 Thrombocytopenia, unspecified; G80.8 Other cerebral palsy; D64.9 Anemia, unspecified; E11.9 Type 2 diabetes mellitus without complications; E78.5 Hyperlipidemia, unspecified; Z86.12 Personal history of poliomyelitis; Z79.01 Long term (current) use of anticoagulants; M89.8X9 Other specified disorders of bone, unspecified site; Z86.73 Personal history of transient ischemic attack (TIA), and cerebral infarction without residual deficits; K21.9 Gastro-esophageal reflux disease without esophagitis; N40.1 Benign prostatic hyperplasia with lower urinary tract symptoms; I27.20 Pulmonary hypertension, unspecified; Z79.899 Other long term (current) drug therapy; I08.0 Rheumatic disorders of both mitral and aortic valves; Z87.440 Personal history of urinary (tract) infections; B35.1 Tinea unguium; Z20.822 Contact with and (suspected) exposure to COVID-19; R53.1 Weakness; N40.0 Benign prostatic hyperplasia without lower urinary tract symptoms
CPT/HCPCS: 36415; 36600; 70450-TC; 71045-TC; 80048-TC; 80053-TC; 80061-TC; 80076-TC; 80162-TC; 82607-TC; 82803-TC; 82962-TC; 83605-TC; 83735-TC; 83921; 84100-TC; 84443-TC; 84484-TC; 85025-TC; 85730-TC; 87040-TC; 87081-TC; 87086-TC; 92526; 92611-TC; 93307-TC; 94799-TC; 97110-TC; 97530-TC; A4223; G0378; J0282; J1160; J1650; J1940; J3490; J7030; J7040; J7060

== ENCOUNTER 2023-12-25 17:40 | Inpatient (IN) | payer MEDICARE, OTHER ==
[~2023-12-25] VITALS: Ht 172.7 cm; Wt 61.2 kg
[~2023-12-25 17:40] MED LIST changes: -AMIO200T5 PO; -APIX5TAB PO; -ASCO-495 PO; -BACL10TA PO; +CALC500T53 PO; +CARB15DR EACHEYE; +CARV6.252 PO; +CLON0.1T PO; -CRAN450C PO; +DAPA10TA PO; +DEXT30SU5 PO; +DICL100G34 TP; -DIGO125T PO; -DILT30TA14 PO; +DOCU100C36 PO; +ESCI10TA PO; +FERR325T23 PO; -FINA5TAB3 PO; +FOLI0.4T6 PO; -FURO-145 PO; -HYDR-4076 PO; -HYDR-4303 PO; +IPRA4AER IH; +LOPE2CAP PO; -MELA5TAB PO; +MELO-107 PO; +METH1TAB69 PO; +NICOTINAMIDE PO; +OLAN5TAB3 PO; +PANT20TA17 PO; -PANT40TA49 PO; +SENN8.6T19 PO; +SPIR25TA6 PO; +TRAM50TA2 PO; +TRAZ-182 PO; +VALS40TA12 PO; +VITA1TAB37 PO; -[UNRECOGNIZED DRUG - CODE] PO
[2023-12-25] MEDS: IV NS 0.9% 1,000 ML BAG IV ONE (17:50)
[2023-12-25 18:20] LABS: BASOPHILS # (AUTO) 0.1 K/uL (0.0-0.2); EOSINOPHILS # (AUTO) 0.5 K/uL (0.0-0.7); EOSINOPHILS % (AUTO) 7.6 % (0.0-6.0); HEMATOCRIT 39 % (39-51); HEMOGLOBIN 12.8 g/dL (13.5-17.5); LYMPHOCYTES # (AUTO) 0.5 K/uL (0.8-4.8); LYMPHOCYTES % (AUTO) 7.8 % (20.0-44.0); MEAN CORPUSCULAR HEMOGLOBIN 31 PG (26.0-33.0); MEAN CORPUSCULAR HGB CONC 33 g/dl (31.0-36.0); MEAN CORPUSCULAR VOLUME 95 fL (80-96); MONOCYTES # (AUTO) 0.4 K/uL (0.1-1.30); MONOCYTES % (AUTO) 6.3 % (2.0-12.0); NEUTROPHILS # (AUTO) 5.3 K/uL (1.8-8.9); NEUTROPHILS % (AUTO) 77.3 % (43.0-81.0); PLATELET COUNT (AUTO) 152 K/uL (150-450); RED BLOOD CELL COUNT(AUTO) 4.11 MIL/uL (4.5-6.0); RED CELL DISTRIBUTION WIDTH 17.3 % (11.5-15.0); WHITE BLOOD COUNT (AUTO) 6.9 K/uL (4.3-11.0)
[2023-12-25] MEDS ORDERED: PIPERACI/TAZO 3.375GM/D5W 50ML PB IV ONE (18:20)
[2023-12-25 18:22] LABS: APPEARANCE,URINE Slightly Cloudy (CLEAR); BILIRUBIN,URINE SMALL (NEGATIVE); BLOOD, URINE Large Ery/uL (NEGATIVE); COLOR,URINE AMBER (YELLOW); KETONES,URINE Trace mg/dL (NEGATIVE); LEUKOCYTE ESTERASE ,URINE Negative (NEGATIVE); NITRITE, URINE Negative (NEGATIVE); PH,URINE 5.5 (5.0-8.0); PROTEIN,URINE 100 mg/dl (NEGATIVE); UGLUCOSE 500 MG/DL mg/dL (NEGATIVE); UROBILINOGEN,URINE 0.2 EU/dL (0.2)
[2023-12-25] MEDS: PIPERACILLIN /TAZOBACTAM 3.375 G in IV D5W 50 ML IV ONE (18:25)
[2023-12-25 18:26] LABS: RBC,URINE 21-50 /HPF (0-2)
[2023-12-25 18:27] LABS: ADD URINE CULTURE NO; BACTERIA,URINE Few /HPF (None Seen); SQUAMOUS EPITHELIAL CELL,UR Rare /HPF (None Seen); URINE AMORPHOUS URATE Few /HPF (None Seen)
[2023-12-25 18:28] LABS: POTASSIUM 4.3 mmol/L (3.5-5.1)
[2023-12-25 18:30] LABS: CALCIUM, SERUM 8.9 mg/dL (8.5-10.1); CARBON DIOXIDE 20 mmol/L (21-32); CHLORIDE 108 mmol/L (98-107); CREATININE 1.7 mg/dL (0.6-1.3); GLUCOSE 122 mg/dL (74-106); SODIUM SERUM 138 mmol/L (136-145); UREA NITROGEN, BLOOD 41 mg/dL (7-18)
[2023-12-25 18:33] LABS: INR 1.14 (0.91-1.10); PROTHROMBIN TIME 11.6 SECS (9.2-11.1)
[2023-12-25] MEDS ORDERED: VANCOMYCIN 1 GM /D5W 250 ML PB IV ONE (18:34)
[2023-12-25 18:35] LABS: ALANINE AMINOTRANSFERASE 25 U/L (12-78); ALBUMIN 3.9 g/dL (3.4-5.0); ALKALINE PHOSPHATASE 74 U/L (46-116); ASPARTATE AMINOTRANSFERASE 20 U/L (15-37); BILIRUBIN,DIRECT 0.2 mg/dL (0.0-0.2); BILIRUBIN,TOTAL 0.8 mg/dL (0.2-1.0); TOTAL PROTEIN, SERUM 7.3 g/dL (6.4-8.2)
[2023-12-25 18:38] LABS: LACTIC ACID 1.6 mmol/L (0.4-2.0)
[2023-12-25] MEDS: VANCOMYCIN 1 GM in IV D5W 250 ML IV ONE (18:50)
[2023-12-25] MEDS ORDERED: ACETAMINOPHEN 325 MG TABLET PO PRN (21:30)
[2023-12-25] MEDS ORDERED: MAG HYDROX/AL HYDROX/SIMETH 30 ML UDC PO PRN (21:30)
[2023-12-25] MEDS ORDERED: MAGNESIUM HYDROXIDE 30 ML UDC PO PRN (21:30)
[2023-12-25] MEDS ORDERED: Z GUARD REMEDY 4 OZ OINT TP PRN (21:30)
[2023-12-25] MEDS ORDERED: ONDANSETRON HCL/PF 4 MG/2 ML VIAL IVP PRN (21:30)
[2023-12-25] MEDS: IV NS 0.9% 1,000 ML IV PRN (23:19)
[2023-12-26] VITALS (7 sets, daily range): BP systolic 105–139; BP diastolic 71–88; TEMP 97.5–98.8; O2SAT 94–97
[2023-12-26] MEDS ORDERED: PIPERACI/TAZO 3.375GM/D5W 50ML PB IV ONE (02:26)
[2023-12-26] MEDS: ZOSYN IVPB 3.375 G in IV D5W 50ml IV ONE (02:30)
[2023-12-26 07:33] LABS: BASOPHILS # (AUTO) 0.1 K/uL (0.0-0.2); EOSINOPHILS # (AUTO) 0.8 K/uL (0.0-0.7); EOSINOPHILS % (AUTO) 12.9 % (0.0-6.0); HEMATOCRIT 35 % (39-51); HEMOGLOBIN 11.2 g/dL (13.5-17.5); LYMPHOCYTES % (AUTO) 15.9 % (20.0-44.0); MEAN CORPUSCULAR HEMOGLOBIN 31 PG (26.0-33.0); MEAN CORPUSCULAR HGB CONC 33 g/dl (31.0-36.0); MEAN CORPUSCULAR VOLUME 94 fL (80-96); MONOCYTES # (AUTO) 0.6 K/uL (0.1-1.30); MONOCYTES % (AUTO) 8.7 % (2.0-12.0); NEUTROPHILS % (AUTO) 61.5 % (43.0-81.0); PLATELET COUNT (AUTO) 103 K/uL (150-450); RED BLOOD CELL COUNT(AUTO) 3.68 MIL/uL (4.5-6.0); RED CELL DISTRIBUTION WIDTH 17.6 % (11.5-15.0); WHITE BLOOD COUNT (AUTO) 6.5 K/uL (4.3-11.0)
[2023-12-26 07:58] LABS: ALANINE AMINOTRANSFERASE 16 U/L (12-78); ALBUMIN 2.9 g/dL (3.4-5.0); ALKALINE PHOSPHATASE 66 U/L (46-116); ASPARTATE AMINOTRANSFERASE 12 U/L (15-37); BILIRUBIN,DIRECT 0.2 mg/dL (0.0-0.2); CALCIUM, SERUM 8.3 mg/dL (8.5-10.1); CARBON DIOXIDE 20 mmol/L (21-32); CHLORIDE 113 mmol/L (98-107); CREATININE 1.3 mg/dL (0.6-1.3); GLUCOSE 87 mg/dL (74-106); PHOSPHORUS 3.7 mg/dL (2.5-4.9); POTASSIUM 3.6 mmol/L (3.5-5.1); SODIUM SERUM 142 mmol/L (136-145); TOTAL PROTEIN, SERUM 5.7 g/dL (6.4-8.2); UREA NITROGEN, BLOOD 28 mg/dL (7-18)
[2023-12-26] MEDS: PANTOPRAZOLE 40 MG TABLET.DR PO SCH (08:28)
[2023-12-26] MEDS ORDERED: DIGO125T PO (09:36)
[2023-12-26] MEDS ORDERED: METO25TA20 PO (09:36)
[2023-12-26] MEDS ORDERED: APIX2.5T PO (09:36)
[2023-12-26] MEDS ORDERED: ACET325T53 PO (09:36)
[2023-12-26] MEDS: PIPERACILLIN /TAZOBACTAM 3.375 G in IV D5W 50 ML IV SCH (12:41)
[2023-12-26] MEDS: VANCOMYCIN 1 GM in IV D5W 250 ML IV SCH (17:00)
[2023-12-27] VITALS: BP 131/85; TEMP 98.1; O2SAT 97
[2023-12-27] MEDS: ZOLPIDEM TARTRATE 5 MG TABLET PO PRN (01:22)
[2023-12-27 04:00] VITALS: BP 136/92; TEMP 97.7; O2SAT 95
[2023-12-27 08:56] LABS: BASOPHILS # (AUTO) 0.1 K/uL (0.0-0.2); BASOPHILS % (AUTO) 0.8 % (0.0-2.0); EOSINOPHILS # (AUTO) 0.9 K/uL (0.0-0.7); EOSINOPHILS % (AUTO) 10.1 % (0.0-6.0); HEMATOCRIT 40 % (39-51); HEMOGLOBIN 13.1 g/dL (13.5-17.5); LYMPHOCYTES # (AUTO) 0.7 K/uL (0.8-4.8); MEAN CORPUSCULAR HEMOGLOBIN 31 PG (26.0-33.0); MEAN CORPUSCULAR HGB CONC 33 g/dl (31.0-36.0); MEAN CORPUSCULAR VOLUME 95 fL (80-96); MONOCYTES # (AUTO) 0.6 K/uL (0.1-1.30); MONOCYTES % (AUTO) 6.6 % (2.0-12.0); NEUTROPHILS # (AUTO) 6.9 K/uL (1.8-8.9); NEUTROPHILS % (AUTO) 74.5 % (43.0-81.0); PLATELET COUNT (AUTO) 123 K/uL (150-450); RED BLOOD CELL COUNT(AUTO) 4.21 MIL/uL (4.5-6.0); RED CELL DISTRIBUTION WIDTH 18.2 % (11.5-15.0); WHITE BLOOD COUNT (AUTO) 9.2 K/uL (4.3-11.0)
[2023-12-27 09:00] VITALS: BP 134/84; TEMP 98.1; O2SAT 93
[2023-12-27 09:23] LABS: CALCIUM, SERUM 8.5 mg/dL (8.5-10.1); CARBON DIOXIDE 17 mmol/L (21-32); CHLORIDE 111 mmol/L (98-107); CREATININE 1.3 mg/dL (0.6-1.3); GLUCOSE 113 mg/dL (74-106); POTASSIUM 3.9 mmol/L (3.5-5.1); SODIUM SERUM 140 mmol/L (136-145); UREA NITROGEN, BLOOD 22 mg/dL (7-18)
[2023-12-27 12:00] VITALS: TEMP 98; O2SAT 94
[2023-12-27 16:00] VITALS: BP 140/100; TEMP 97.5; O2SAT 95
[2023-12-27 20:00] VITALS: BP 124/97; TEMP 98.1; O2SAT 97
[2023-12-28] VITALS: BP 129/89; TEMP 97.7; O2SAT 97
[2023-12-28 04:00] VITALS: BP 118/92; TEMP 98.3; O2SAT 99
[2023-12-28 08:00] VITALS: BP 140/99; TEMP 98.1; O2SAT 99
[2023-12-28 09:51] LABS: BASOPHILS # (AUTO) 0.1 K/uL (0.0-0.2); BASOPHILS % (AUTO) 0.8 % (0.0-2.0); EOSINOPHILS # (AUTO) 0.3 K/uL (0.0-0.7); HEMATOCRIT 39 % (39-51); HEMOGLOBIN 12.9 g/dL (13.5-17.5); LYMPHOCYTES # (AUTO) 0.9 K/uL (0.8-4.8); LYMPHOCYTES % (AUTO) 10.6 % (20.0-44.0); MEAN CORPUSCULAR HEMOGLOBIN 31 PG (26.0-33.0); MEAN CORPUSCULAR HGB CONC 33 g/dl (31.0-36.0); MEAN CORPUSCULAR VOLUME 94 fL (80-96); MONOCYTES # (AUTO) 0.5 K/uL (0.1-1.30); MONOCYTES % (AUTO) 5.5 % (2.0-12.0); NEUTROPHILS # (AUTO) 6.7 K/uL (1.8-8.9); NEUTROPHILS % (AUTO) 79.1 % (43.0-81.0); PLATELET COUNT (AUTO) 112 K/uL (150-450); RED BLOOD CELL COUNT(AUTO) 4.13 MIL/uL (4.5-6.0); RED CELL DISTRIBUTION WIDTH 18.1 % (11.5-15.0); WHITE BLOOD COUNT (AUTO) 8.5 K/uL (4.3-11.0)
[2023-12-28 09:58] LABS: CALCIUM, SERUM 8.6 mg/dL (8.5-10.1); CARBON DIOXIDE 13 mmol/L (21-32); CHLORIDE 108 mmol/L (98-107); GLUCOSE 135 mg/dL (74-106); POTASSIUM 3.8 mmol/L (3.5-5.1); SODIUM SERUM 140 mmol/L (136-145); UREA NITROGEN, BLOOD 15 mg/dL (7-18)
[2023-12-28 12:00] VITALS: BP 118/84; TEMP 98.1; O2SAT 99
[2023-12-28 16:00] VITALS: BP 105/64; TEMP 98.1; O2SAT 97
[2023-12-28 20:00] VITALS: BP 117/85; TEMP 97.9; O2SAT 97
[2023-12-28] MEDS: CLONIDINE HCL 0.1 MG TABLET PO PRN (22:21)
[2023-12-29] VITALS: BP 123/89; TEMP 97.9; O2SAT 97
[2023-12-29] MEDS: LORAZEPAM 1 MG TABLET PO PRN (01:02)
[2023-12-29 04:00] VITALS: BP_SYST 111; BP_SYST 146; BP_DIAS 84; BP_DIAS 89; TEMP 98.2; TEMP 98.4; O2SAT 96; O2SAT 97
[2023-12-29] MEDS: DILTIAZEM HCL 25 MG IV IV ONE (04:28)
[2023-12-29] MEDS: VANCOMYCIN 1 GM in IV D5W 250ml IV SCH (05:12)
[2023-12-29 06:50] LABS: BASOPHILS # (AUTO) 0.1 K/uL (0.0-0.2); BASOPHILS % (AUTO) 0.6 % (0.0-2.0); EOSINOPHILS # (AUTO) 0.8 K/uL (0.0-0.7); EOSINOPHILS % (AUTO) 8.4 % (0.0-6.0); HEMATOCRIT 36 % (39-51); HEMOGLOBIN 11.9 g/dL (13.5-17.5); LYMPHOCYTES # (AUTO) 0.8 K/uL (0.8-4.8); LYMPHOCYTES % (AUTO) 8.9 % (20.0-44.0); MEAN CORPUSCULAR HEMOGLOBIN 31 PG (26.0-33.0); MEAN CORPUSCULAR HGB CONC 33 g/dl (31.0-36.0); MEAN CORPUSCULAR VOLUME 95 fL (80-96); MONOCYTES # (AUTO) 0.7 K/uL (0.1-1.30); NEUTROPHILS # (AUTO) 6.6 K/uL (1.8-8.9); NEUTROPHILS % (AUTO) 74.1 % (43.0-81.0); PLATELET COUNT (AUTO) 105 K/uL (150-450); RED BLOOD CELL COUNT(AUTO) 3.84 MIL/uL (4.5-6.0); RED CELL DISTRIBUTION WIDTH 18.1 % (11.5-15.0)
[2023-12-29 07:00] LABS: CALCIUM, SERUM 8.9 mg/dL (8.5-10.1); CARBON DIOXIDE 19 mmol/L (21-32); CHLORIDE 108 mmol/L (98-107); GLUCOSE 114 mg/dL (74-106); POTASSIUM 3.6 mmol/L (3.5-5.1); SODIUM SERUM 140 mmol/L (136-145); UREA NITROGEN, BLOOD 15 mg/dL (7-18)
[2023-12-29 08:00] VITALS: BP 115/69; TEMP 98.1; O2SAT 98
[2023-12-29 12:00] VITALS: BP 109/86; TEMP 97.9; O2SAT 97
== END 2023-12-29 16:00 | DRG 640 ==
LOC: ER 17:46 → TELE1 20:06 → MEDSG1 12-27 09:45 → TELE1 12-27 23:44
PROVIDERS: ADMIT Nurse Practitioner Family; ATTEND Internal Medicine
DX: E86.0 Dehydration (principal); E43 Unspecified severe protein-calorie malnutrition; N17.0 Acute kidney failure with tubular necrosis; R65.11 Systemic inflammatory response syndrome (SIRS) of non-infectious origin with acute organ dysfunction; I50.22 Chronic systolic (congestive) heart failure; I13.0 Hypertensive heart and chronic kidney disease with heart failure and stage 1 through stage 4 chronic kidney disease, or unspecified chronic kidney disease; N18.9 Chronic kidney disease, unspecified; D64.9 Anemia, unspecified; E78.5 Hyperlipidemia, unspecified; E88.09 Other disorders of plasma-protein metabolism, not elsewhere classified; I48.91 Unspecified atrial fibrillation; Z86.12 Personal history of poliomyelitis; Z20.822 Contact with and (suspected) exposure to COVID-19; F03.90 Unspecified dementia, unspecified severity, without behavioral disturbance, psychotic disturbance, mood disturbance, and anxiety; G80.9 Cerebral palsy, unspecified; Z68.20 Body mass index [BMI] 20.0-20.9, adult; I95.9 Hypotension, unspecified; N40.0 Benign prostatic hyperplasia without lower urinary tract symptoms; E11.22 Type 2 diabetes mellitus with diabetic chronic kidney disease; I27.20 Pulmonary hypertension, unspecified
CPT/HCPCS: 36415; 71045-TC; 80048-TC; 80076-TC; 80202-TC; 81001; 82962-TC; 83605-TC; 83735-TC; 84100-TC; 84443-TC; 84484-TC; 85025-TC; 85730-TC; 87040-TC; 87081-TC; 87086-TC; 97110-TC; 97116-TC; 97530-TC; A4223; G0378; J2543; J3370; J3490; J7030; J7060

== ENCOUNTER 2024-05-15 17:23 | Inpatient (IN) | payer MEDICARE, OTHER ==
[~2024-05-15] VITALS: Ht 188 cm; Wt 85.3 kg
[~2024-05-15 17:23] MED LIST changes: -ACET-2605 PO; +ACET325T53 PO; +APIX2.5T PO; -CARV6.252 PO; -CICL6.6S5 TP; +DIGO125T PO; +METO25TA20 PO
[2024-05-15] MEDS: IV NS 0.9% 500 ML BAG IV ONE (18:17)
[2024-05-15 18:41] LABS: CALCIUM, SERUM 8.7 mg/dL (8.5-10.1); CARBON DIOXIDE 26 mmol/L (21-32); CHLORIDE 110 mmol/L (98-107); CREATININE 1.7 mg/dL (0.6-1.3); GLUCOSE 66 mg/dL (74-106); POTASSIUM 4.4 mmol/L (3.5-5.1); SODIUM SERUM 146 mmol/L (136-145); UREA NITROGEN, BLOOD 51 mg/dL (7-18)
[2024-05-15 18:52] LABS: BASOPHILS # (AUTO) 0.1 K/uL (0.0-0.2); BASOPHILS % (AUTO) 1.3 % (0.0-2.0); EOSINOPHILS # (AUTO) 0.5 K/uL (0.0-0.7); EOSINOPHILS % (AUTO) 8.3 % (0.0-6.0); HEMATOCRIT 40 % (39-51); HEMOGLOBIN 13.4 g/dL (13.5-17.5); LYMPHOCYTES # (AUTO) 0.9 K/uL (0.8-4.8); LYMPHOCYTES % (AUTO) 13.9 % (20.0-44.0); MEAN CORPUSCULAR HEMOGLOBIN 30 PG (26.0-33.0); MEAN CORPUSCULAR HGB CONC 34 g/dl (31.0-36.0); MEAN CORPUSCULAR VOLUME 91 fL (80-96); MONOCYTES # (AUTO) 0.6 K/uL (0.1-1.30); MONOCYTES % (AUTO) 9.9 % (2.0-12.0); NEUTROPHILS # (AUTO) 4.3 K/uL (1.8-8.9); NEUTROPHILS % (AUTO) 66.6 % (43.0-81.0); PLATELET COUNT (AUTO) 162 K/uL (150-450); RED BLOOD CELL COUNT(AUTO) 4.41 MIL/uL (4.5-6.0); RED CELL DISTRIBUTION WIDTH 14.6 % (11.5-15.0); WHITE BLOOD COUNT (AUTO) 6.4 K/uL (4.3-11.0)
[2024-05-15 18:54] LABS: APPEARANCE,URINE CLEAR (CLEAR); BILIRUBIN,URINE NEGATIVE (NEGATIVE); BLOOD, URINE TRACE-INTA Ery/uL (NEGATIVE); COLOR,URINE YELLOW (YELLOW); KETONES,URINE NEGATIVE (NEGATIVE); LEUKOCYTE ESTERASE ,URINE NEGATIVE (NEGATIVE); NITRITE, URINE NEGATIVE (NEGATIVE); PROTEIN,URINE NEGATIVE (NEGATIVE); UGLUCOSE 2+ mg/dL (NEGATIVE); UROBILINOGEN,URINE 0.2 EU/dL (0.2)
[2024-05-15 19:01] LABS: WBC,URINE 0-2 /HPF (0-3)
[2024-05-15 19:02] LABS: ADD URINE CULTURE NO; BACTERIA,URINE None seen /HPF (None Seen)
[2024-05-15] MEDS ORDERED: FINA5TAB4 PO (19:04)
[2024-05-15] MEDS ORDERED: CICL6.6S5 TP (19:04)
[2024-05-15] MEDS ORDERED: FURO-145 PO (19:04)
[2024-05-15] MEDS ORDERED: MAGN400O6 PO (19:04)
[2024-05-15] MEDS ORDERED: PANT40TA2 PO (19:04)
[2024-05-15] MEDS ORDERED: MEGE40TA5 PO (19:04)
[2024-05-15] MEDS ORDERED: Z GUARD REMEDY 4 OZ OINT TP PRN (21:30)
[2024-05-15] MEDS ORDERED: CLONIDINE HCL 0.1 MG TABLET PO PRN (21:30)
[2024-05-15] MEDS ORDERED: MAGNESIUM HYDROXIDE 30 ML UDC PO PRN (21:30)
[2024-05-15] MEDS ORDERED: ACETAMINOPHEN 325 MG TABLET PO PRN (21:30)
[2024-05-15] MEDS ORDERED: ONDANSETRON HCL/PF 4 MG/2 ML VIAL IVP PRN (21:30)
[2024-05-15] MEDS ORDERED: MAG HYDROX/AL HYDROX/SIMETH 30 ML UDC PO PRN (21:30)
[2024-05-15] MEDS ORDERED: ZOLPIDEM TARTRATE 5 MG TABLET PO PRN (21:30)
[2024-05-15] MEDS ORDERED: Medication Not On Formulary EA (Ipratropium/Albuterol Sulfate (Combivent Respimat 20-100 IH PRN (21:30)
[2024-05-15] MEDS: FINASTERIDE (5 MG) 5 MG TABLET PO SCH (22:00)
[2024-05-15] MEDS ORDERED: IPRATROPIUM NEB FS 0.5 MG/2.5 ML AMPUL.NEB IH PRN (22:30)
[2024-05-15] MEDS ORDERED: ALBUTEROL FS 2.5 MG/0.5 ML VIAL.NEB NEB PRN (22:30)
[2024-05-15] MEDS ORDERED: CARBOXYMETHYLCELLULOSE SODIUM 0.4 ML DROPERETTE EACHEYE PRN (22:30)
[2024-05-15] MEDS: SENNOSIDES 8.6 MG TABLET PO SCH (23:00)
[2024-05-15] MEDS: TAMSULOSIN 0.4 MG CAP.SR.24H PO SCH (23:00)
[2024-05-15] MEDS: TRAZODONE 50 MG TABLET PO SCH (23:00)
[2024-05-15] MEDS ORDERED: SENNOSIDES 8.6 MG TABLET ONE (23:28)
[2024-05-15] MEDS ORDERED: TAMSULOSIN 0.4 MG CAP.SR.24H ONE (23:29)
[2024-05-15] MEDS ORDERED: TRAZODONE 50 MG TABLET ONE (23:29)
[2024-05-16] MEDS: IV NS 0.9% 1,000 ML IV PRN (05:29)
[2024-05-16 08:22] LABS: BASOPHILS # (AUTO) 0.1 K/uL (0.0-0.2); BASOPHILS % (AUTO) 1.2 % (0.0-2.0); EOSINOPHILS # (AUTO) 0.5 K/uL (0.0-0.7); EOSINOPHILS % (AUTO) 7.7 % (0.0-6.0); HEMATOCRIT 39 % (39-51); LYMPHOCYTES # (AUTO) 0.9 K/uL (0.8-4.8); LYMPHOCYTES % (AUTO) 13.3 % (20.0-44.0); MEAN CORPUSCULAR HEMOGLOBIN 31 PG (26.0-33.0); MEAN CORPUSCULAR HGB CONC 33 g/dl (31.0-36.0); MEAN CORPUSCULAR VOLUME 93 fL (80-96); MONOCYTES # (AUTO) 0.6 K/uL (0.1-1.30); MONOCYTES % (AUTO) 8.2 % (2.0-12.0); NEUTROPHILS # (AUTO) 4.9 K/uL (1.8-8.9); NEUTROPHILS % (AUTO) 69.6 % (43.0-81.0); PLATELET COUNT (AUTO) 129 K/uL (150-450); RED BLOOD CELL COUNT(AUTO) 4.25 MIL/uL (4.5-6.0)
[2024-05-16 08:29] LABS: ALBUMIN 3.3 g/dL (3.4-5.0); BILIRUBIN,TOTAL 0.7 mg/dL (0.2-1.0); CALCIUM, SERUM 8.6 mg/dL (8.5-10.1); CREATININE 1.2 mg/dL (0.6-1.3); MAGNESIUM 2.3 mg/dL (1.8-2.4); PHOSPHORUS 3.2 mg/dL (2.5-4.9); POTASSIUM 4.1 mmol/L (3.5-5.1); TOTAL PROTEIN, SERUM 6.4 g/dL (6.4-8.2)
[2024-05-16] MEDS: PANTOPRAZOLE 40 MG TABLET.DR PO SCH (08:30)
[2024-05-16] MEDS ORDERED: PANTOPRAZOLE 40 MG TABLET.DR PO ONE (08:41)
[2024-05-16] MEDS: VITAMIN E 400 UNIT CAPSULE PO SCH (09:00)
[2024-05-16] MEDS ORDERED: Medication Not On Formulary EA (Omega-3 Acid Ethyl Esters (Lovaza) 1 GM) PO SCH (09:00)
[2024-05-16] MEDS: FLUDROCORTISONE 0.1 MG TABLET PO SCH (09:00)
[2024-05-16] MEDS ORDERED: Medication Not On Formulary EA (Meloxicam 15 MG) PO SCH (09:00)
[2024-05-16] MEDS: FOLIC ACID 1 MG TABLET PO SCH (09:00)
[2024-05-16] MEDS: CHOLECALCIFEROL 1,000 UNIT TABLET (VIT D3) PO SCH (09:00)
[2024-05-16] MEDS: CALCIUM CARBONATE (1250) 500 MG TABLET PO SCH (09:00)
[2024-05-16] MEDS ORDERED: APIXABAN 2.5 MG TABLET ONE (09:09)
[2024-05-16] MEDS ORDERED: DOCUSATE SODIUM 100 MG CAPSULE PO ONE (09:09)
[2024-05-16] MEDS ORDERED: METOPROLOL TARTRATE 25 MG TABLET ONE (09:10)
[2024-05-16] MEDS ORDERED: FERROUS SULFATE (325 MG) 325 MG/TAB TABLET ONE (09:10)
[2024-05-16] MEDS ORDERED: OLANZAPINE 5 MG TABLET ONE (09:10)
[2024-05-16] MEDS ORDERED: ESCITALOPRAM OXALATE (10 MG) 10 MG TABLET ONE (09:10)
[2024-05-16] MEDS ORDERED: MEGESTROL ACETATE 40 MG TABLET ONE (09:10)
[2024-05-16] MEDS ORDERED: ASPIRIN 81 MG TAB.CHEW ONE (09:11)
[2024-05-16] MEDS: DOCUSATE SODIUM 100 MG CAPSULE PO SCH (09:18)
[2024-05-16] MEDS: APIXABAN 2.5 MG TABLET PO SCH (09:18)
[2024-05-16] MEDS: ASPIRIN EC 81 MG TABLET.DR PO SCH (09:18)
[2024-05-16] MEDS: MEGESTROL ACETATE 40 MG TABLET PO SCH (09:19)
[2024-05-16] MEDS: METOPROLOL TARTRATE 25 MG TABLET PO SCH (09:19)
[2024-05-16] MEDS: FERROUS SULFATE (325 MG) 325 MG/TAB TABLET PO SCH (09:19)
[2024-05-16] MEDS: ESCITALOPRAM OXALATE (10 MG) 10 MG TABLET PO SCH (09:19)
[2024-05-16] MEDS: OLANZAPINE 5 MG TABLET PO SCH (09:20)
[2024-05-16] MEDS: DAPAGLIFLOZIN PROPANEDIOL 10 MG TABLET PO SCH (09:30)
[2024-05-16] MEDS ORDERED: DIGOXIN 0.125 MG TABLET ONE (13:11)
[2024-05-16] MEDS: DIGOXIN 0.125 MG TABLET PO SCH (13:21)
[2024-05-16 16:00] VITALS: BP 119/65; TEMP 97.7; O2SAT 98
[2024-05-16 18:00] VITALS: BP 119/65; TEMP 98; O2SAT 100
[2024-05-16 20:00] VITALS: BP 92/46; TEMP 97.3; O2SAT 99
[2024-05-16] MEDS: ATORVASTATIN 10 MG TABLET PO SCH (22:29)
[2024-05-17 07:37] LABS: CALCIUM, SERUM 9.1 mg/dL (8.5-10.1); CREATININE 1.1 mg/dL (0.6-1.3); POTASSIUM 4.1 mmol/L (3.5-5.1)
[2024-05-17 08:00] VITALS: BP 124/81; TEMP 98.6; O2SAT 96
[2024-05-17] MEDS ORDERED: NEPRO VAN 237 ML CAN PO PRN (10:00)
[2024-05-17 16:15] VITALS: BP 110/83; TEMP 97.5; O2SAT 94
[2024-05-17 20:00] VITALS: BP 99/60; TEMP 97.5; O2SAT 99
[2024-05-18] MEDS: IV NS 0.9% 1,000 ML IV PRN (05:52)
[2024-05-18 07:41] LABS: CALCIUM, SERUM 8.6 mg/dL (8.5-10.1); CREATININE 1.1 mg/dL (0.6-1.3); POTASSIUM 4.2 mmol/L (3.5-5.1)
[2024-05-18 08:00] VITALS: TEMP 98.2; O2SAT 97
[2024-05-18 20:00] VITALS: BP 103/65; TEMP 97.8; O2SAT 98
[2024-05-19 07:57] LABS: CALCIUM, SERUM 8.5 mg/dL (8.5-10.1); POTASSIUM 4.2 mmol/L (3.5-5.1)
[2024-05-19 08:32] VITALS: BP 114/68; TEMP 97.5; O2SAT 99
[2024-05-19 09:10] VITALS: BP 114/68
== END 2024-05-19 15:20 | DRG 640 ==
LOC: ER 17:26 → TRANSITION 05-16 04:28 → MED 05-16 14:32
PROVIDERS: ADMIT Nurse Practitioner Acute Care; ATTEND Nurse Practitioner Acute Care
DX: R62.7 Adult failure to thrive (principal); G93.41 Metabolic encephalopathy; N17.0 Acute kidney failure with tubular necrosis; I50.22 Chronic systolic (congestive) heart failure; I48.20 Chronic atrial fibrillation, unspecified; E87.0 Hyperosmolality and hypernatremia; E86.0 Dehydration; E86.9 Volume depletion, unspecified; I11.0 Hypertensive heart disease with heart failure; Z20.822 Contact with and (suspected) exposure to COVID-19; G80.9 Cerebral palsy, unspecified; Z66 Do not resuscitate; Z86.12 Personal history of poliomyelitis; Z88.4 Allergy status to anesthetic agent; Z79.01 Long term (current) use of anticoagulants; Z79.51 Long term (current) use of inhaled steroids; Z79.899 Other long term (current) drug therapy; M19.90 Unspecified osteoarthritis, unspecified site; M89.8X9 Other specified disorders of bone, unspecified site; F32.A Depression, unspecified; E86.1 Hypovolemia; F29 Unspecified psychosis not due to a substance or known physiological condition; E11.9 Type 2 diabetes mellitus without complications; D64.9 Anemia, unspecified; E78.5 Hyperlipidemia, unspecified; N40.0 Benign prostatic hyperplasia without lower urinary tract symptoms; K59.00 Constipation, unspecified
CPT/HCPCS: 36415; 71045-TC; 80048-TC; 80053-TC; 81001; 82962-TC; 83735-TC; 84100-TC; 84484-TC; 85025-TC; 87081-TC; 87086-TC; 92526; 92611-TC; A4223; G0378; J7030; J7040

== ENCOUNTER 2024-06-18 08:42 | Emergency (ER) | payer MEDICARE, OTHER ==
[~2024-06-18] VITALS: Ht 170.2 cm; Wt 52.2 kg
[~2024-06-18 08:42] MED LIST changes: +CICL6.6S5 TP; +FINA5TAB4 PO; -FOLI1TAB26 PO; +FURO-145 PO; +MAGN400O6 PO; +MEGE40TA5 PO; -MELO-107 PO; -NICOTINAMIDE PO; -PANT20TA17 PO; +PANT40TA2 PO; -VALS40TA12 PO; -VITA1TAB37 PO
[2024-06-18 09:22] LABS: BASOPHILS # (AUTO) 0.1 K/uL (0.0-0.2); BASOPHILS % (AUTO) 1.2 % (0.0-2.0); EOSINOPHILS # (AUTO) 0.7 K/uL (0.0-0.7); EOSINOPHILS % (AUTO) 9.1 % (0.0-6.0); HEMATOCRIT 47 % (39-51); HEMOGLOBIN 15.6 g/dL (13.5-17.5); LYMPHOCYTES # (AUTO) 1.1 K/uL (0.8-4.8); LYMPHOCYTES % (AUTO) 14.4 % (20.0-44.0); MEAN CORPUSCULAR HEMOGLOBIN 30 PG (26.0-33.0); MEAN CORPUSCULAR HGB CONC 34 g/dl (31.0-36.0); MEAN CORPUSCULAR VOLUME 90 fL (80-96); MONOCYTES # (AUTO) 0.8 K/uL (0.1-1.30); MONOCYTES % (AUTO) 10.5 % (2.0-12.0); NEUTROPHILS # (AUTO) 4.8 K/uL (1.8-8.9); NEUTROPHILS % (AUTO) 64.8 % (43.0-81.0); PLATELET COUNT (AUTO) 140 K/uL (150-450); RED CELL DISTRIBUTION WIDTH 14.9 % (11.5-15.0); WHITE BLOOD COUNT (AUTO) 7.4 K/uL (4.3-11.0)
[2024-06-18 09:28] LABS: CREATININE 1.5 mg/dL (0.6-1.3); POTASSIUM 4.5 mmol/L (3.5-5.1)
[2024-06-18 09:34] LABS: ALBUMIN 3.8 g/dL (3.4-5.0); BILIRUBIN,DIRECT 0.3 mg/dL (0.0-0.2); BILIRUBIN,TOTAL 1.4 mg/dL (0.2-1.0); TOTAL PROTEIN, SERUM 7.3 g/dL (6.4-8.2)
[2024-06-18] MEDS: KETOROLAC TROMETHAMINE 15 MG/ML VIAL IV ONE (10:00)
[2024-06-18] MEDS: IV NS 0.9% 1,000 ML BAG IV ONE (10:00)
[2024-06-18] MEDS ORDERED: KETOROLAC TROMETHAMINE 15 MG/ML VIAL ONE (10:17)
[2024-06-18 10:51] LABS: APPEARANCE,URINE TURBID (CLEAR); BILIRUBIN,URINE NEGATIVE (NEGATIVE); BLOOD, URINE 1+ Ery/uL (NEGATIVE); COLOR,URINE YELLOW (YELLOW); KETONES,URINE NEGATIVE (NEGATIVE); LEUKOCYTE ESTERASE ,URINE 2+ (NEGATIVE); NITRITE, URINE NEGATIVE (NEGATIVE); PROTEIN,URINE 1+ mg/dl (NEGATIVE); UGLUCOSE 2+ mg/dL (NEGATIVE); UROBILINOGEN,URINE 0.2 EU/dL (0.2)
[2024-06-18] MEDS ORDERED: CEPH-570 PO (11:22)
[2024-06-18 11:24] LABS: ADD URINE CULTURE YES; BACTERIA,URINE Few /HPF (None Seen); SQUAMOUS EPITHELIAL CELL,UR 0-2 /HPF (None Seen); YEAST,URINE Moderate /HPF (None Seen)
[2024-06-18] MEDS ORDERED: CEFTRIAXONE 1GM BAG (ER ONLY) 50 ML IV ONE (11:27)
[2024-06-18] MEDS: CEFTRIAXONE 1 G in IV D5W 50 ML IV ONE (11:30)
[2024-06-18 13:02] VITALS: BP 100/65; TEMP 98; O2SAT 99
== END 2024-06-18 12:30 | disposition home or self-care (01) ==
LOC: ER 08:48
DX: N39.0 Urinary tract infection, site not specified (principal); R30.0 Dysuria; N18.9 Chronic kidney disease, unspecified; E86.0 Dehydration; F20.9 Schizophrenia, unspecified; F32.A Depression, unspecified; F41.9 Anxiety disorder, unspecified; G80.9 Cerebral palsy, unspecified; I13.0 Hypertensive heart and chronic kidney disease with heart failure and stage 1 through stage 4 chronic kidney disease, or unspecified chronic kidney disease; I48.91 Unspecified atrial fibrillation; I50.9 Heart failure, unspecified; K21.9 Gastro-esophageal reflux disease without esophagitis; N40.0 Benign prostatic hyperplasia without lower urinary tract symptoms; Z79.82 Long term (current) use of aspirin; Z79.84 Long term (current) use of oral hypoglycemic drugs; Z79.899 Other long term (current) drug therapy; Z88.8 Allergy status to other drugs, medicaments and biological substances
CPT/HCPCS: 99285; 96365; 71045; 96361; 96375; 93005; 85025; 80048; 87086; 80076; 81001; 36415; J1885; J0696 ×2; J7060; 87186-TC

== ENCOUNTER 2024-07-08 12:58 | Inpatient (IN) | payer MEDICARE, OTHER ==
[~2024-07-08] VITALS: Ht 175.3 cm; Wt 58.1 kg
[~2024-07-08 12:58] MED LIST changes: +CEPH-570 PO
[2024-07-08] MEDS: IV NS 0.9% 1,000 ML BAG IV ONE (13:30)
[2024-07-08] MEDS: CEFEPIME 1 GM in IV D5W 50 ML IV ONE (13:30)
[2024-07-08] MEDS ORDERED: OMEP1PAC5 PO (13:43)
[2024-07-08] MEDS ORDERED: DICL50TA7 PO (13:43)
[2024-07-08 13:52] LABS: ABG BASE EXCESS -3.1 mmol/L (-2.0-3.0); ABG OXYGEN SATURATION 94.9 % (94.0-98.0); ABG PCO2 29.8 mmHg (35.0-48.0); ABG PH 7.441 (7.350-7.450); ABG PO2 79.1 mmHg (83.0-108.0); ABG TOTAL HEMOGLOBIN 13.6 G/dL (13.5-17.5); COHb 0.3 % (0.5-1.5); MetHb 0.1 % (0.0-1.5); O2Hb 94.5 % (94.0-97.0); SITE, ABG RIGHT RADIAL
[2024-07-08 13:57] LABS: BASOPHILS % (AUTO) 0.1 % (0.0-2.0); EOSINOPHILS # (AUTO) 0.1 K/uL (0.0-0.7); EOSINOPHILS % (AUTO) 0.6 % (0.0-6.0); HEMATOCRIT 40 % (39-51); HEMOGLOBIN 13.9 g/dL (13.5-17.5); LYMPHOCYTES # (AUTO) 0.7 K/uL (0.8-4.8); LYMPHOCYTES % (AUTO) 6.1 % (20.0-44.0); MEAN CORPUSCULAR HEMOGLOBIN 31 PG (26.0-33.0); MEAN CORPUSCULAR HGB CONC 35 g/dl (31.0-36.0); MEAN CORPUSCULAR VOLUME 89 fL (80-96); MONOCYTES # (AUTO) 0.8 K/uL (0.1-1.30); MONOCYTES % (AUTO) 7.3 % (2.0-12.0); NEUTROPHILS # (AUTO) 9.2 K/uL (1.8-8.9); NEUTROPHILS % (AUTO) 85.9 % (43.0-81.0); PLATELET COUNT (AUTO) 194 K/uL (150-450); RED BLOOD CELL COUNT(AUTO) 4.44 MIL/uL (4.5-6.0); RED CELL DISTRIBUTION WIDTH 14.9 % (11.5-15.0); WHITE BLOOD COUNT (AUTO) 10.7 K/uL (4.3-11.0)
[2024-07-08 14:00] LABS: INR 1.24 (0.91-1.10); PARTIAL THROMBOPLASTIN TIME 29.8 SEC (24.3-34.3)
[2024-07-08 14:06] LABS: CALCIUM, SERUM 8.9 mg/dL (8.5-10.1); CARBON DIOXIDE 22 mmol/L (21-32); CHLORIDE 105 mmol/L (98-107); CREATININE 1.9 mg/dL (0.6-1.3); GLUCOSE 106 mg/dL (74-106); POTASSIUM 4.5 mmol/L (3.5-5.1); SODIUM SERUM 139 mmol/L (136-145); UREA NITROGEN, BLOOD 51 mg/dL (7-18)
[2024-07-08 14:09] LABS: ALANINE AMINOTRANSFERASE 14 U/L (12-78); ALBUMIN 3.5 g/dL (3.4-5.0); ALKALINE PHOSPHATASE 70 U/L (46-116); ASPARTATE AMINOTRANSFERASE 17 U/L (15-37); BILIRUBIN,DIRECT 0.2 mg/dL (0.0-0.2); BILIRUBIN,TOTAL 0.9 mg/dL (0.2-1.0); TOTAL PROTEIN, SERUM 7.2 g/dL (6.4-8.2)
[2024-07-08 14:35] LABS: APPEARANCE,URINE TURBID (CLEAR); BILIRUBIN,URINE NEGATIVE (NEGATIVE); BLOOD, URINE 2+ Ery/uL (NEGATIVE); COLOR,URINE YELLOW (YELLOW); KETONES,URINE NEGATIVE (NEGATIVE); LEUKOCYTE ESTERASE ,URINE 2+ (NEGATIVE); NITRITE, URINE POSITIVE (NEGATIVE); PROTEIN,URINE 1+ mg/dl (NEGATIVE); UGLUCOSE 2+ mg/dL (NEGATIVE); UROBILINOGEN,URINE 0.2 EU/dL (0.2)
[2024-07-08 15:03] LABS: WBC,URINE TOO NUMEROUS TO COUN /HPF (0-3)
[2024-07-08 15:04] LABS: ADD URINE CULTURE YES; BACTERIA,URINE Few /HPF (None Seen); SQUAMOUS EPITHELIAL CELL,UR None Seen /HPF (None Seen)
[2024-07-08 17:34] VITALS: BP 133/81; TEMP 98.2; O2SAT 93
[2024-07-08] MEDS ORDERED: MAGNESIUM HYDROXIDE 30 ML UDC PO PRN (18:00)
[2024-07-08] MEDS ORDERED: MAG HYDROX/AL HYDROX/SIMETH 30 ML UDC PO PRN (18:00)
[2024-07-08] MEDS ORDERED: Z GUARD REMEDY 4 OZ OINT TP PRN (18:00)
[2024-07-08] MEDS ORDERED: ONDANSETRON HCL/PF 4 MG/2 ML VIAL IVP PRN (18:00)
[2024-07-08] MEDS: DIGOXIN 0.125 MG TABLET PO SCH (18:35)
[2024-07-08] MEDS ORDERED: CARBOXYMETHYLCELLULOSE SODIUM 1 EA TUBE EACHEYE PRN (19:30)
[2024-07-08 20:00] VITALS: BP 92/60; TEMP 98.6; O2SAT 100
[2024-07-08] MEDS: TRAZODONE 50 MG TABLET PO SCH (21:56)
[2024-07-08] MEDS: ATORVASTATIN 10 MG TABLET PO SCH (21:56)
[2024-07-08] MEDS: SENNOSIDES 8.6 MG TABLET PO SCH (21:56)
[2024-07-08] MEDS: TAMSULOSIN 0.4 MG CAP.SR.24H PO SCH (21:56)
[2024-07-08] MEDS: FINASTERIDE (5 MG) 5 MG TABLET PO SCH (21:57)
[2024-07-09] VITALS: BP 92/61; TEMP 97.9; O2SAT 100
[2024-07-09] MEDS: CEFEPIME 1 GM in IV D5W 50 ML IV SCH (01:37)
[2024-07-09 04:00] VITALS: BP 101/69; TEMP 98.1; O2SAT 99
[2024-07-09] MEDS: ACETAMINOPHEN 325 MG TABLET PO PRN (06:41)
[2024-07-09 07:53] LABS: CALCIUM, SERUM 9.4 mg/dL (8.5-10.1); CREATININE 1.9 mg/dL (0.6-1.3); MAGNESIUM 2.3 mg/dL (1.8-2.4); PHOSPHORUS 5.1 mg/dL (2.5-4.9); POTASSIUM 4.2 mmol/L (3.5-5.1)
[2024-07-09 08:00] VITALS: BP 96/65; TEMP 97.5; O2SAT 98
[2024-07-09] MEDS: PANTOPRAZOLE 40 MG VIAL IV SCH (08:54)
[2024-07-09] MEDS: OLANZAPINE 5 MG TABLET PO SCH (08:55)
[2024-07-09] MEDS: FLUDROCORTISONE 0.1 MG TABLET PO SCH (08:55)
[2024-07-09] MEDS: CHOLECALCIFEROL 1,000 UNIT TABLET (VIT D3) PO SCH (08:55)
[2024-07-09] MEDS: CALCIUM CARBONATE (1250) 500 MG TABLET PO SCH (08:55)
[2024-07-09] MEDS: FERROUS SULFATE (325 MG) 325 MG/TAB TABLET PO SCH (08:55)
[2024-07-09] MEDS: ASPIRIN EC 81 MG TABLET.DR PO SCH (08:55)
[2024-07-09] MEDS: FOLIC ACID 1 MG TABLET PO SCH (08:56)
[2024-07-09] MEDS: DAPAGLIFLOZIN PROPANEDIOL 10 MG TABLET PO SCH (08:56)
[2024-07-09] MEDS: LORATADINE 10 MG TABLET PO SCH (08:56)
[2024-07-09] MEDS: METOPROLOL TARTRATE 25 MG TABLET PO SCH (08:57)
[2024-07-09] MEDS: APIXABAN 2.5 MG TABLET PO SCH (08:57)
[2024-07-09] MEDS ORDERED: SPIRONOLACTONE 25 MG TABLET PO SCH (09:00)
[2024-07-09] MEDS ORDERED: FUROSEMIDE 20 MG TABLET PO SCH (09:00)
[2024-07-09] MEDS ORDERED: Medication Not On Formulary EA (Omega-3 Acid Ethyl Esters (Lovaza) 1 GM) PO SCH (09:00)
[2024-07-09 09:13] LABS: BASOPHILS # (AUTO) 0.1 K/uL (0.0-0.2); BASOPHILS % (AUTO) 0.6 % (0.0-2.0); EOSINOPHILS # (AUTO) 0.1 K/uL (0.0-0.7); EOSINOPHILS % (AUTO) 0.9 % (0.0-6.0); HEMATOCRIT 42 % (39-51); HEMOGLOBIN 14.1 g/dL (13.5-17.5); LYMPHOCYTES # (AUTO) 0.7 K/uL (0.8-4.8); LYMPHOCYTES % (AUTO) 8.5 % (20.0-44.0); MEAN CORPUSCULAR HEMOGLOBIN 31 PG (26.0-33.0); MEAN CORPUSCULAR HGB CONC 34 g/dl (31.0-36.0); MEAN CORPUSCULAR VOLUME 91 fL (80-96); MONOCYTES # (AUTO) 0.1 K/uL (0.1-1.30); MONOCYTES % (AUTO) 1.1 % (2.0-12.0); NEUTROPHILS # (AUTO) 7.2 K/uL (1.8-8.9); NEUTROPHILS % (AUTO) 88.9 % (43.0-81.0); PLATELET COUNT (AUTO) 153 K/uL (150-450); RED BLOOD CELL COUNT(AUTO) 4.58 MIL/uL (4.5-6.0); RED CELL DISTRIBUTION WIDTH 15.2 % (11.5-15.0); WHITE BLOOD COUNT (AUTO) 8.1 K/uL (4.3-11.0)
[2024-07-09] MEDS: VITAMIN E 400 UNIT CAPSULE PO SCH (09:13)
[2024-07-09] MEDS: DILTIAZEM HCL CD 240 MG PO SCH (10:00)
[2024-07-09] MEDS: IV NS 0.9% 1,000 ML IV ONE (11:29)
[2024-07-09 12:00] VITALS: BP 97/64; TEMP 97.9; O2SAT 99
[2024-07-09] MEDS: VANCOMYCIN HCL 1.25 GM in IV D5W 250 ML IV ONE (14:31)
[2024-07-09 16:00] VITALS: BP 118/82; TEMP 97.7; O2SAT 98
[2024-07-09 20:00] VITALS: BP 110/84; TEMP 97.7; O2SAT 97
[2024-07-10] VITALS: BP 103/86; TEMP 97.5; O2SAT 98
[2024-07-10 04:00] VITALS: BP 117/67; TEMP 97.7; O2SAT 99
[2024-07-10 08:00] VITALS: BP 111/96; TEMP 96.9; O2SAT 94
[2024-07-10 08:23] LABS: BASOPHILS # (AUTO) 0.1 K/uL (0.0-0.2); BASOPHILS % (AUTO) 0.6 % (0.0-2.0); EOSINOPHILS # (AUTO) 0.2 K/uL (0.0-0.7); HEMATOCRIT 34 % (39-51); HEMOGLOBIN 11.6 g/dL (13.5-17.5); LYMPHOCYTES # (AUTO) 0.2 K/uL (0.8-4.8); LYMPHOCYTES % (AUTO) 2.8 % (20.0-44.0); MEAN CORPUSCULAR HEMOGLOBIN 30 PG (26.0-33.0); MEAN CORPUSCULAR HGB CONC 34 g/dl (31.0-36.0); MEAN CORPUSCULAR VOLUME 89 fL (80-96); MONOCYTES # (AUTO) 0.6 K/uL (0.1-1.30); MONOCYTES % (AUTO) 6.4 % (2.0-12.0); NEUTROPHILS # (AUTO) 7.8 K/uL (1.8-8.9); NEUTROPHILS % (AUTO) 88.2 % (43.0-81.0); PLATELET COUNT (AUTO) 106 K/uL (150-450); RED BLOOD CELL COUNT(AUTO) 3.87 MIL/uL (4.5-6.0); RED CELL DISTRIBUTION WIDTH 14.9 % (11.5-15.0); WHITE BLOOD COUNT (AUTO) 8.8 K/uL (4.3-11.0)
[2024-07-10 08:53] LABS: ALBUMIN 2.6 g/dL (3.4-5.0); BILIRUBIN,TOTAL 1.1 mg/dL (0.2-1.0); CALCIUM, SERUM 8.4 mg/dL (8.5-10.1); CREATININE 1.4 mg/dL (0.6-1.3); MAGNESIUM 2.2 mg/dL (1.8-2.4); PHOSPHORUS 2.3 mg/dL (2.5-4.9)
[2024-07-10 09:00] LABS: POTASSIUM 3.5 mmol/L (3.5-5.1)
[2024-07-10] MEDS: PANTOPRAZOLE 40 MG TABLET.DR PO SCH (09:37)
[2024-07-10 12:00] VITALS: BP 108/95; TEMP 97.3; O2SAT 96
[2024-07-10] MEDS ORDERED: VANCOMYCIN 750 MG in IV D5W 250 ML IV SCH (14:00)
[2024-07-10 16:00] VITALS: BP 158/107; TEMP 98.1; O2SAT 96
[2024-07-10] MEDS: K PHOS NEUTRAL 250 MG TABLET PO ONE (16:07)
[2024-07-10] MEDS: DICLOFENAC TOPICAL 100 GM TUBE TP SCH (17:11)
[2024-07-10] MEDS: IV NS 0.9% 1,000 ML IV PRN (18:21)
[2024-07-10 20:00] VITALS: BP 94/56; TEMP 97.9; O2SAT 95
[2024-07-11] VITALS: BP 91/52; TEMP 97.5; O2SAT 95
[2024-07-11 04:00] VITALS: BP 91/73; TEMP 96; O2SAT 97
[2024-07-11 07:07] LABS: PTH, INTACT 32 pg/mL (15-65)
[2024-07-11 08:00] VITALS: BP 115/76; TEMP 97.3; O2SAT 95
[2024-07-11] MEDS ORDERED: DICLOFENAC SODIUM 25 MG TABLET.DR PO SCH (09:00)
[2024-07-11 12:00] VITALS: BP 112/69; TEMP 97.7; O2SAT 100
[2024-07-11 12:53] LABS: BASOPHILS # (AUTO) 0.1 K/uL (0.0-0.2); BASOPHILS % (AUTO) 1.3 % (0.0-2.0); CALCIUM, SERUM 8.4 mg/dL (8.5-10.1); EOSINOPHILS # (AUTO) 0.2 K/uL (0.0-0.7); EOSINOPHILS % (AUTO) 3.3 % (0.0-6.0); HEMATOCRIT 36 % (39-51); HEMOGLOBIN 12.4 g/dL (13.5-17.5); LYMPHOCYTES # (AUTO) 0.3 K/uL (0.8-4.8); LYMPHOCYTES % (AUTO) 4.4 % (20.0-44.0); MEAN CORPUSCULAR HEMOGLOBIN 31 PG (26.0-33.0); MEAN CORPUSCULAR HGB CONC 35 g/dl (31.0-36.0); MEAN CORPUSCULAR VOLUME 88 fL (80-96); MONOCYTES # (AUTO) 0.5 K/uL (0.1-1.30); NEUTROPHILS # (AUTO) 5.5 K/uL (1.8-8.9); PLATELET COUNT (AUTO) 103 K/uL (150-450); POTASSIUM 3.7 mmol/L (3.5-5.1); RED BLOOD CELL COUNT(AUTO) 4.05 MIL/uL (4.5-6.0); RED CELL DISTRIBUTION WIDTH 14.7 % (11.5-15.0); WHITE BLOOD COUNT (AUTO) 6.6 K/uL (4.3-11.0)
[2024-07-11] MEDS ORDERED: ENSURE ENLIVE 237 ML LIQUID (VANILLA) PO SCH (14:00)
[2024-07-11] MEDS: GLUCERNA SHAKE 237 ML CAN PO SCH (14:05)
[2024-07-11 16:00] VITALS: BP 102/56; TEMP 97.9; O2SAT 99
[2024-07-11] MEDS: K PHOS NEUTRAL 250 MG TABLET PO ONE (16:31)
[2024-07-11 20:00] VITALS: BP 104/59; TEMP 97.9; O2SAT 99
[2024-07-12] VITALS: BP 131/86; TEMP 98.4; O2SAT 99
[2024-07-12 04:00] VITALS: BP 102/69; TEMP 98.1; O2SAT 97
[2024-07-12 08:00] VITALS: BP 123/67; TEMP 97.8; O2SAT 99
[2024-07-12 08:21] LABS: BASOPHILS # (AUTO) 0.1 K/uL (0.0-0.2); EOSINOPHILS # (AUTO) 0.3 K/uL (0.0-0.7); HEMATOCRIT 36 % (39-51); HEMOGLOBIN 12.2 g/dL (13.5-17.5); LYMPHOCYTES # (AUTO) 0.6 K/uL (0.8-4.8); MEAN CORPUSCULAR HEMOGLOBIN 30 PG (26.0-33.0); MEAN CORPUSCULAR HGB CONC 34 g/dl (31.0-36.0); MEAN CORPUSCULAR VOLUME 88 fL (80-96); MONOCYTES # (AUTO) 0.7 K/uL (0.1-1.30); NEUTROPHILS # (AUTO) 5.8 K/uL (1.8-8.9); PLATELET COUNT (AUTO) 101 K/uL (150-450); RED CELL DISTRIBUTION WIDTH 14.7 % (11.5-15.0); WHITE BLOOD COUNT (AUTO) 7.4 K/uL (4.3-11.0)
[2024-07-12 08:52] LABS: CALCIUM, SERUM 8.5 mg/dL (8.5-10.1); MAGNESIUM 2.1 mg/dL (1.8-2.4); PHOSPHORUS 2.7 mg/dL (2.5-4.9); POTASSIUM 3.6 mmol/L (3.5-5.1)
[2024-07-12] MEDS: MEROPENEM 1 G in IV NS 0.9% 100 ML IV SCH (11:57)
[2024-07-12 16:00] VITALS: BP 120/82; TEMP 97.5; O2SAT 100
[2024-07-12 20:00] VITALS: BP 101/61; TEMP 98.2; O2SAT 100
[2024-07-13 04:00] VITALS: BP 95/74; TEMP 98.1; O2SAT 97
[2024-07-13 07:27] LABS: BASOPHILS # (AUTO) 0.1 K/uL (0.0-0.2); BASOPHILS % (AUTO) 0.8 % (0.0-2.0); EOSINOPHILS # (AUTO) 0.3 K/uL (0.0-0.7); EOSINOPHILS % (AUTO) 3.4 % (0.0-6.0); HEMATOCRIT 33 % (39-51); HEMOGLOBIN 11.6 g/dL (13.5-17.5); LYMPHOCYTES # (AUTO) 0.8 K/uL (0.8-4.8); LYMPHOCYTES % (AUTO) 9.5 % (20.0-44.0); MEAN CORPUSCULAR HEMOGLOBIN 30 PG (26.0-33.0); MEAN CORPUSCULAR HGB CONC 35 g/dl (31.0-36.0); MEAN CORPUSCULAR VOLUME 87 fL (80-96); MONOCYTES # (AUTO) 0.8 K/uL (0.1-1.30); MONOCYTES % (AUTO) 9.7 % (2.0-12.0); NEUTROPHILS # (AUTO) 6.2 K/uL (1.8-8.9); NEUTROPHILS % (AUTO) 76.6 % (43.0-81.0); PLATELET COUNT (AUTO) 104 K/uL (150-450); RED BLOOD CELL COUNT(AUTO) 3.82 MIL/uL (4.5-6.0); RED CELL DISTRIBUTION WIDTH 14.3 % (11.5-15.0)
[2024-07-13 07:38] LABS: CALCIUM, SERUM 8.3 mg/dL (8.5-10.1); CARBON DIOXIDE 22 mmol/L (21-32); CHLORIDE 110 mmol/L (98-107); GLUCOSE 108 mg/dL (74-106); MAGNESIUM 2.1 mg/dL (1.8-2.4); PHOSPHORUS 2.4 mg/dL (2.5-4.9); POTASSIUM 3.6 mmol/L (3.5-5.1); SODIUM SERUM 142 mmol/L (136-145); UREA NITROGEN, BLOOD 16 mg/dL (7-18)
[2024-07-13 08:00] VITALS: BP 105/76; TEMP 98.6; O2SAT 95
[2024-07-13 12:00] VITALS: BP 111/78; TEMP 97.9; O2SAT 99
[2024-07-13 16:00] VITALS: BP 133/85; TEMP 98.4; O2SAT 97
[2024-07-13] MEDS: K PHOS NEUTRAL 250 MG TABLET PO ONE (16:47)
[2024-07-13 20:00] VITALS: BP 117/85; TEMP 97.8; O2SAT 96
[2024-07-14] VITALS: BP 128/69; TEMP 98.8; O2SAT 96
[2024-07-14 04:00] VITALS: BP 133/90; TEMP 98.4; O2SAT 98
[2024-07-14 08:00] VITALS: BP 104/70; TEMP 97.9; O2SAT 96
[2024-07-14 08:22] LABS: CALCIUM, SERUM 8.2 mg/dL (8.5-10.1); CREATININE 0.9 mg/dL (0.6-1.3); PHOSPHORUS 2.6 mg/dL (2.5-4.9); POTASSIUM 3.7 mmol/L (3.5-5.1)
[2024-07-14] MEDS ORDERED: MERO1PIG IV (10:45)
[2024-07-14 12:00] VITALS: BP 97/66; TEMP 98.2; O2SAT 97
[2024-07-16 16:10] LABS: *SPE ALBUMIN 2.7 g/dL (2.9-4.4); *SPE ALPHA-1-GLOBULIN 0.3 g/dL (0.0-0.4); *SPE ALPHA-2-GLOBULIN 0.7 g/dL (0.4-1.0); *SPE BETA GLOBULIN 0.8 g/dL (0.7-1.3); *SPE GLOBULIN, TOTAL 2.7 g/dL (2.2-3.9); *SPE M-SPIKE Not Observed g/dL (Not Observed); *SPE PROTEIN TOTAL 5.4 g/dL (6.0-8.5)
== END 2024-07-14 15:32 | DRG 871 ==
LOC: ER 13:01 → TELE1 16:45
DX: A41.51 Sepsis due to Escherichia coli [E. coli] (principal); J96.01 Acute respiratory failure with hypoxia; G92.8 Other toxic encephalopathy; N17.9 Acute kidney failure, unspecified; I13.0 Hypertensive heart and chronic kidney disease with heart failure and stage 1 through stage 4 chronic kidney disease, or unspecified chronic kidney disease; N39.0 Urinary tract infection, site not specified; I50.22 Chronic systolic (congestive) heart failure; E87.20 Acidosis, unspecified; Z16.12 Extended spectrum beta lactamase (ESBL) resistance; E78.5 Hyperlipidemia, unspecified; E83.9 Disorder of mineral metabolism, unspecified; Z79.01 Long term (current) use of anticoagulants; I48.91 Unspecified atrial fibrillation; I27.20 Pulmonary hypertension, unspecified; Z20.822 Contact with and (suspected) exposure to COVID-19; G80.9 Cerebral palsy, unspecified; N40.0 Benign prostatic hyperplasia without lower urinary tract symptoms; I35.0 Nonrheumatic aortic (valve) stenosis; N18.9 Chronic kidney disease, unspecified; E11.22 Type 2 diabetes mellitus with diabetic chronic kidney disease
CPT/HCPCS: 36415; 71045-TC; 76770-TC; 80048-TC; 80053-TC; 80076-TC; 81001; 82550-TC; 82803-TC; 83605-TC; 83735-TC; 83970; 84100-TC; 84155; 84165; 84484-TC; 85025-TC; 85730-TC; 87040-TC; 87081-TC; 87086-TC; 87186-TC; 92526; 92611-TC; 93307-TC; 97110-TC; 97530-TC; A4223; G0378; J0692; J2185; J2470; J3371; J3490; J7030; J7050; J7060

== ENCOUNTER 2025-04-09 12:42 | Inpatient (IN) | payer MEDICARE, OTHER ==
[~2025-04-09] VITALS: Ht 170.2 cm; Wt 49.4 kg
[~2025-04-09 12:42] MED LIST changes: -CEPH-570 PO; -CICL6.6S5 TP; -DEXT30SU5 PO; +DICL50TA7 PO; -IPRA4AER IH; -LOPE2CAP PO; -MEGE40TA5 PO; +MERO1PIG IV; +OMEP1PAC5 PO; -PANT40TA2 PO
[2025-04-09 13:30] LABS: PLATELET COUNT (AUTO) 206 K/uL (150-450); RED BLOOD CELL COUNT(AUTO) 4.61 MIL/uL (4.5-6.0); RED CELL DISTRIBUTION WIDTH 15.1 % (11.5-15.0); WHITE BLOOD COUNT (AUTO) 9.7 K/uL (4.3-11.0)
[2025-04-09 13:47] LABS: CALCIUM, SERUM 9.0 mg/dL (8.5-10.1); CREATININE 1.3 mg/dL (0.6-1.3); SODIUM SERUM 136 mmol/L (136-145); UREA NITROGEN, BLOOD 22 mg/dL (7-18)
[2025-04-09 13:55] LABS: LACTIC ACID 0.8 mmol/L (0.4-2.0)
[2025-04-09] MEDS ORDERED: CALC-770 PO (13:57)
[2025-04-09] MEDS ORDERED: CICL6.6S5 TP (13:58)
[2025-04-09] MEDS ORDERED: TRIA80CR2 TP (13:58)
[2025-04-09] MEDS ORDERED: MAGN355O5 PO (13:58)
[2025-04-09] MEDS ORDERED: PANT40TA49 PO (13:58)
[2025-04-09] MEDS ORDERED: IPRA4AER IH (13:58)
[2025-04-09] MEDS ORDERED: DIPH-1062 PO (13:58)
[2025-04-09] MEDS ORDERED: NUT.237L28 PO (13:58)
[2025-04-09] MEDS ORDERED: DILT120T2 PO (13:58)
[2025-04-09] MEDS: IV NS 0.9% 1,000 ML BAG IV ONE (14:00)
[2025-04-09 14:02] LABS: NT-PRO BNP 2396 pg/mL (0-125)
[2025-04-09] MEDS: CEFTRIAXONE 1GM BAG (ER ONLY) 50 ML IV ONE (14:10)
[2025-04-09] MEDS ORDERED: Z GUARD REMEDY 4 OZ OINT TP PRN (14:30)
[2025-04-09] MEDS ORDERED: ACETAMINOPHEN 325 MG TABLET PO PRN (14:30)
[2025-04-09] MEDS ORDERED: ZOLPIDEM TARTRATE 5 MG TABLET PO PRN (14:30)
[2025-04-09] MEDS ORDERED: ONDANSETRON HCL/PF 4 MG/2 ML VIAL IVP PRN (14:30)
[2025-04-09] MEDS: AZITHROMYCIN 500 MG in IV D5W 250 ML IV ONE (14:55)
[2025-04-09 15:03] VITALS: O2SAT 97
[2025-04-09 16:00] VITALS: BP_SYST 121; BP_SYST 143; BP_DIAS 112; BP_DIAS 60; TEMP 97.4; TEMP 97.5; O2SAT 98
[2025-04-09] MEDS: IV NS 0.9% 1,000 ML IV PRN (17:10)
[2025-04-09] MEDS: ENOXAPARIN SODIUM 40 MG/0.4 ML DISP.SYRIN SQ SCH (17:13)
[2025-04-09] MEDS: DOXYCYCLINE 100 MG in IV D5W 100 ML IV ONE (17:14)
[2025-04-09] MEDS: CEFEPIME 2 GM in IV D5W 100 ML IV SCH (20:24)
[2025-04-09] MEDS: DOXYCYCLINE 100 MG in IV D5W 100 ML IV SCH (20:24)
[2025-04-09 23:54] VITALS: BP 109/63; TEMP 97.7; O2SAT 95
[2025-04-10 06:40] LABS: PLATELET COUNT (AUTO) 175 K/uL (150-450); RED BLOOD CELL COUNT(AUTO) 4.13 MIL/uL (4.5-6.0); RED CELL DISTRIBUTION WIDTH 14.9 % (11.5-15.0); WHITE BLOOD COUNT (AUTO) 7.6 K/uL (4.3-11.0)
[2025-04-10 06:58] LABS: CALCIUM, SERUM 8.6 mg/dL (8.5-10.1); CREATININE 1.0 mg/dL (0.6-1.3); PHOSPHORUS 3.6 mg/dL (2.5-4.9); SODIUM SERUM 138.0 mmol/L (136-145); UREA NITROGEN, BLOOD 17.0 mg/dL (7-18)
[2025-04-10 09:35] VITALS: BP 107/78; TEMP 98.1; O2SAT 94
[2025-04-10 16:00] VITALS: BP 112/75; TEMP 97.7; O2SAT 97
[2025-04-10 20:00] VITALS: BP 97/68; TEMP 97.7; O2SAT 96
[2025-04-11] MEDS ORDERED: ALBUTEROL HALF STRENGTH 1.25 MG/3 ML VIAL.NEB NEB PRN (12:30)
[2025-04-11] MEDS: ENSURE ENLIVE 237 ML LIQUID (VANILLA) PO SCH (16:22)
[2025-04-11 20:00] VITALS: BP 110/83; TEMP 97.7; O2SAT 99
[2025-04-12 07:00] VITALS: BP 125/89; TEMP 97.5; O2SAT 98
== END 2025-04-12 12:30 | DRG 178 ==
LOC: ER 12:52 → TELE 15:12 → MED 18:09
PROVIDERS: ADMIT Internal Medicine; ATTEND Internal Medicine
DX: J69.0 Pneumonitis due to inhalation of food and vomit (principal); D68.59 Other primary thrombophilia; G81.94 Hemiplegia, unspecified affecting left nondominant side; G80.8 Other cerebral palsy; I48.91 Unspecified atrial fibrillation; E11.22 Type 2 diabetes mellitus with diabetic chronic kidney disease; E78.5 Hyperlipidemia, unspecified; G14 Postpolio syndrome; I50.32 Chronic diastolic (congestive) heart failure; I13.0 Hypertensive heart and chronic kidney disease with heart failure and stage 1 through stage 4 chronic kidney disease, or unspecified chronic kidney disease; F20.9 Schizophrenia, unspecified; N18.30 Chronic kidney disease, stage 3 unspecified; F32.A Depression, unspecified; J42 Unspecified chronic bronchitis; I35.0 Nonrheumatic aortic (valve) stenosis; F41.9 Anxiety disorder, unspecified; R91.1 Solitary pulmonary nodule; N40.0 Benign prostatic hyperplasia without lower urinary tract symptoms
CPT/HCPCS: 36415; 70220-TC; 71045-TC; 71250-TC; 80048-TC; 83605-TC; 83735-TC; 83880; 84100-TC; 84484-TC; 85025-TC; 87040-TC; 92526; 92611; 93307-TC; 97110-TC; 97112-TC; 97530-TC; G0378; J0456; J0692; J1650; J3490; J7030; J7040; J7060